=== PATIENT | female | born 1950 | race African-American/Black ===

== ENCOUNTER 2017-01-01 09:12 | Outpatient (CLI) | payer MEDICARE ==
--- NOTE | 2017-01-01 10:36 | MMO ---
BILATERAL SCREENING MAMMOGRAM: Date: 01/01/17 INDICATION: Screening evaluation. COMPARISON: Prior exam dated 02/24/04. FINDINGS: Interpretation of this exam was assisted with computer-aided detection. There are scattered fibroglandular elements bilaterally. There are vascular calcifications bilaterally. There is a stable partially calcified mass within the outer aspect of the left breast which may refl ect a degenerating fibroadenoma. There is a new oval equal density mass seen within the anterior aspect of the upper outer left breas t measuring 7.0 mm. There is motion artifact on the left breast MLO. IMPRESSION: BIRADS 0: Incomplete: Need Additional Imaging Evaluation and/or Prior Mammograms for Comparison There is a new mass within the left breast 2 o'clock position that requires further evaluation. Spot magnification compression views in addition to ultrasound likely necessary for additional evaluatio n. Recommend repeat of the left breast MLO due to motion artifact. The facility will notify patient of need for additional imaging services. POS: ERNESTINA
== END 2017-01-01 09:13 | disposition home or self-care (01) ==
LOC: MAMMO 09:12
PROVIDERS: ATTEND Family Medicine
DX: Z12.31 Encounter for screening mammogram for malignant neoplasm of breast (principal); E11.9 Type 2 diabetes mellitus without complications
CPT/HCPCS: 77067; G0202

== ENCOUNTER 2017-04-29 10:34 | Emergency (ER) | payer MEDICARE ==
[2017-04-29 11:45] LABS: INR-International Normal Ratio 1.9; PTT 34.4 SEC (22.9-36.1); Prothrombin Time 22.8 SEC (12.0-14.7)
[2017-04-29 11:56] LABS: Anion Gap 12 mmol/L (10-20); BUN (Urea Nitrogen) 14 mg/dL (9.8-20.1); Calc. Creatinine Clearance 0 mL/min (70-130); Calcium 9.8 mg/dL (7.8-10.44); Carbon Dioxide 24 mmol/L (23-31); Chloride 106 mmol/L (98-107); Estimated GFR-MDRD 67; Glucose 84 mg/dL (80-115); Potassium 3.6 mmol/L (3.5-5.1); Sodium 138 mmol/L (136-145)
--- NOTE | 2017-04-29 13:00 | ULT ---
DEEP VENOUS SONOGRAM LEFT LOWER EXTREMITY: HISTORY: Left leg pain and edema. FINDINGS: The left common femoral vein and greater saphenous junction are evaluated along with the femoral, prosper p femoral, popliteal, and posterior tibial vein. T here is good color and spectral Doppler flow, comp ression, and augmentation. IMPRESSION: No sonographic evidence of deep vein thrombosis within the left lower extremity. POS: GAIL
== END 2017-04-29 12:21 | disposition home or self-care (01) ==
LOC: ERS 10:34
DX: S86.912A Strain of unspecified muscle(s) and tendon(s) at lower leg level, left leg, initial encounter (principal); I48.91 Unspecified atrial fibrillation; E11.9 Type 2 diabetes mellitus without complications; E78.5 Hyperlipidemia, unspecified; I10 Essential (primary) hypertension; Z87.891 Personal history of nicotine dependence; Z79.899 Other long term (current) drug therapy; Z79.82 Long term (current) use of aspirin; Z79.84 Long term (current) use of oral hypoglycemic drugs; Z79.01 Long term (current) use of anticoagulants; X50.9XXA Other and unspecified overexertion or strenuous movements or postures, initial encounter
CPT/HCPCS: 36415; 80048; 85610; 85730

== ENCOUNTER 2017-08-29 12:09 | Emergency (ER) | payer MEDICARE ==
[2017-08-29] MEDS ORDERED: Lorazepam 2 MG/ML VIAL ONE (13:50)
[2017-08-29] MEDS ORDERED: Morphine 10 MG/ML VIAL ONE (13:50)
== END 2017-08-29 14:18 | disposition home or self-care (01) ==
LOC: ERS 12:09
DX: M79.7 Fibromyalgia (principal); E11.9 Type 2 diabetes mellitus without complications; E78.5 Hyperlipidemia, unspecified; I48.91 Unspecified atrial fibrillation; I10 Essential (primary) hypertension; M19.90 Unspecified osteoarthritis, unspecified site; Z87.891 Personal history of nicotine dependence; Z79.84 Long term (current) use of oral hypoglycemic drugs; Z79.899 Other long term (current) drug therapy; Z79.01 Long term (current) use of anticoagulants
CPT/HCPCS: 96372; J2060; J2270

== ENCOUNTER 2018-01-10 06:40 | Outpatient (CLI) | payer MEDICARE ==
--- NOTE | 2018-01-10 08:59 | ULT ---
ABDOMINAL ULTRASOUND: Date: 01/10/18 HISTORY: Generalized abdominal pain. FINDINGS: Real-time imaging of the upper abdomen demonstrates a normal appearing gallbladder. The common duct i s 5.0 mm. Technologist reports a negative ultrasound Rhoades's sign. Visualized liver parenchyma is no rmal. The spleen is normal in size, it measures 10.5 cm in length. Right and left kidneys are partially obscured, but they are normal in size and not obstructed. Pancreas is partially obscured. The abdominal aorta and IVC regions are unremarkable. IMPRESSION: Essentially unremarkable abdomen ultrasound. POS: T[facility]
== END 2018-01-10 06:41 | disposition home or self-care (01) ==
LOC: BICULT 06:40
PROVIDERS: ATTEND Internal Medicine Gastroenterology
DX: R10.9 Unspecified abdominal pain (principal)
CPT/HCPCS: 76700

== ENCOUNTER 2018-01-22 07:29 | Day surgery (SDC) | payer MEDICARE ==
[2018-01-21 12:54] VITALS: BMI 36.6
--- NOTE | 2018-01-22 07:21 | HP ---
DATE OF ADMISSION: 01/22/2018 HISTORY OF PRESENT ILLNESS: Ms. Jacque Pinto is a very pleasant 67-year-old -Malag[place] with abdominal pain off and on over the last 1 year. The pain is in the upper abdomen. The pain is all over the epigastric area. The pain is cramping in nature and at times sharp in nature. She has mild nausea with the pain. No vomiting. The patient has had abdominal sonogram. The sonogram shows no gallstones. With this abdominal pain, she also has history of intermittant rectal bleeding. The patient is coming in for EGD for abdominal pain and for colonoscopy because of hematochezia. ALLERGIES: SULFA and HYDROCODONE. SOCIAL HISTORY: She is a former smoker. No alcohol intake. MEDICAL ILLNESSES: 1. Hypertension. 2. Diabetes. 3. Hyperlipidemia. 4. Obesity. 5. Fibromyalgia. 6. Osteoarthritis. 7. ASD repair. 8. Cardiac ablation few years ago. 9. Sleep apnea. PHYSICAL EXAMINATION: GENERAL: Patient is obese, appears comfortable. VITAL SIGNS: Pulse is 70, blood pressure 130/80. HEENT: Conjunctivae clear. CARDIOVASCULAR: First and second heart sounds normal. LUNGS: Clear to auscultation. ABDOMEN: Soft to palpate. No organomegaly. Abdomen is tender over the epigastric area. There is no rebound or guarding. EXTREMITIES: Reveal no edema. ADMITTING DIAGNOSES: A 67-year-old -Malagasy with abdominal pain and hematochezia. PLAN: EGD and colonoscopy. MTDD
--- NOTE | 2018-01-22 12:43 | OP ---
DATE OF PROCEDURE: 01/22/2018 SURGEON: Skyler Angeles M.D. OPERATIVE PROCEDURE: Colonoscopy with polypectomy. . PREOPERATIVE DIAGNOSIS: Rectal bleeding. POSTOPERATIVE DIAGNOSES: 1. Sessile ascending colon polyp. 2. Sigmoid diverticular disease. 3. Hemorrhoids. 4. Retained stool throughout the colon. PROCEDURE IN DETAIL: The patient was placed on her left lateral position and was given sedation by A nesthesia Department. A rectal exam was done. The scope was advanced into the rectum. No lesions w ere felt on rectal exam. A Pentax video colonoscope was introduced into the rectum and advanced all the way into the cecum. The appendiceal orifice, ileocecal valve, cecum, no pathology seen. The asc ending colon showed a broad-based sessile polyp. This was removed with snare cautery with good hemos tasis. The hepatic flexure, transverse colon, splenic flexure, descending colon, no pathology seen. The sigmoid colon showed scattered diverticula. Rectum showed hemorrhoids.
[2018-01-22] MEDS ORDERED: PROPOFOL 200 MG/20 ML VIAL ONE (17:59)
[2018-01-22] MEDS ORDERED: Lidocaine 1% PF 5 ML VIAL ONE (17:59)
--- NOTE | 2018-01-23 00:41 | OP ---
DATE OF PROCEDURE: 01/22/2018 SURGEON: Nav Hidalgo M.D. PROCEDURE PERFORMED: Esophagogastroduodenoscopy, enteroscopy. PREOPERATIVE DIAGNOSIS: A 67-year-old black female with a previous gastric bypass surgery, comes with abdominal pain. The patient had abdominal sonogram, which was negative for gallstones. The patient underwent esophagogastroduodenoscopy. POSTOPERATIVE DIAGNOSES: 1. Esophagitis, distal esophagus. 2. Ulceration over anastomotic area. Otherwise, both afferent and efferent loop showed no pathology. PROCEDURE IN DETAIL: The patient was placed on her left lateral position and was given sedation by the Anesthesia Department. A Pentax video gastroscope under direct vision was passed down the oropharynx into the esophagus. The esophageal mucosa appears normal over the upper two-thirds. Over the distal esophagus, the patient found to have erythematous mucosa. The patient found to have small ulceration at the anastamotic area. Both afferent and efferent loop entered without difficulty and no pathology seen. The scope removed. DISCHARGE PLANNING: This is a 67-year-old -Spanish female who came in for colonoscopy and EGD. The EGD showed an ulcer at the anastomotic area and esophagitis. The prep was somewhat unsatisfactory; however, the exam was done all the way to cecum. She had a broad-based sessile polyp over the ascending colon. She also had a hemorrhoids and sigmoid diverticula. DISCHARGE RECOMMENDATIONS: 1. Start patient on omeprazole 40 once a day. 2. The patient advised to call me if she develops abdominal pain or hematochezia. 3. To come back to clinic in next week. [facility]
== END 2018-01-22 10:52 | disposition home or self-care (01) ==
LOC: SDC 07:29
PROVIDERS: ATTEND Internal Medicine Gastroenterology
PROC: 0DJ08ZZ Inspection of Upper Intestinal Tract, Via Natural or Artificial Opening Endoscopic (ICD-10-PCS; principal; 2018-01-22)
PROC: 0DBK8ZX Excision of Ascending Colon, Via Natural or Artificial Opening Endoscopic, Diagnostic (ICD-10-PCS; 2018-01-22)
DX: K57.31 Diverticulosis of large intestine without perforation or abscess with bleeding (principal); K64.9 Unspecified hemorrhoids; D12.2 Benign neoplasm of ascending colon; K20.9 Esophagitis, unspecified; K95.89 Other complications of other bariatric procedure; I10 Essential (primary) hypertension; E11.9 Type 2 diabetes mellitus without complications; E78.5 Hyperlipidemia, unspecified; M79.7 Fibromyalgia; M19.90 Unspecified osteoarthritis, unspecified site; G47.30 Sleep apnea, unspecified; K59.00 Constipation, unspecified; F41.9 Anxiety disorder, unspecified; F32.9 Major depressive disorder, single episode, unspecified; K21.9 Gastro-esophageal reflux disease without esophagitis; G43.909 Migraine, unspecified, not intractable, without status migrainosus; E78.00 Pure hypercholesterolemia, unspecified; E66.9 Obesity, unspecified; Z68.36 Body mass index [BMI] 36.0-36.9, adult; Z88.2 Allergy status to sulfonamides; Z88.5 Allergy status to narcotic agent; Z79.01 Long term (current) use of anticoagulants; Z79.84 Long term (current) use of oral hypoglycemic drugs; Z79.899 Other long term (current) drug therapy; Z98.84 Bariatric surgery status
CPT/HCPCS: 88305; J2001; J2704

== ENCOUNTER 2018-12-15 19:18 | Emergency (ER) | payer MEDICARE ==
[2018-12-15] MEDS ORDERED: Morphine 4 MG/ML VIAL ONE (19:50)
== END 2018-12-15 20:09 | disposition home or self-care (01) ==
LOC: ERS 19:18
DX: M79.7 Fibromyalgia (principal); I48.91 Unspecified atrial fibrillation; E78.5 Hyperlipidemia, unspecified; I10 Essential (primary) hypertension; E11.9 Type 2 diabetes mellitus without complications; M19.90 Unspecified osteoarthritis, unspecified site; Z87.891 Personal history of nicotine dependence; Z71.6 Tobacco abuse counseling; Z79.899 Other long term (current) drug therapy; Z79.01 Long term (current) use of anticoagulants; Z79.84 Long term (current) use of oral hypoglycemic drugs
CPT/HCPCS: 96372; 99406; J2270

== ENCOUNTER 2018-12-22 00:08 | Observation (INO) | payer MEDICARE ==
[2018-12-22] MEDS ORDERED: Aspirin Chewable 81 MG TAB ONE (00:28)
[2018-12-22] MEDS ORDERED: Nitroglycerin 2% Ointment 1 INCH/1 GM Packet ONE (00:28)
[2018-12-22 00:50] LABS: Hemoglobin 10.3 g/dL (12.0-16.0); Mean Corpuscular HGB CONC 32.5 g/dL (32.0-36.0); Mean Corpuscular Hemoglobin 27.6 pg (27.0-31.0); Mean Corpuscular Volume 85.2 fL (78.0-98.0); Mean Platelet Volume 7.8 fL (7.4-10.4); Platelet Count 254 thou/uL (130-400); RBC Distribution Width 14.1 % (11.5-14.5); Red Blood Cell (RBC) Count 3.73 mill/uL (4.20-5.40); White Blood Cell (WBC) Count 8.1 thou/uL (4.8-10.8)
[2018-12-22 00:55] LABS: ALT (SGPT) 11 U/L (8-55); AST (SGOT) 19 U/L (5-34); Alkaline Phosphatase 98 U/L (40-110); Anion Gap 13 mmol/L (10-20); BUN (Urea Nitrogen) 9 mg/dL (9.8-20.1); Bilirubin, Total 0.2 mg/dL (0.2-1.2); CK (CPK) 57 U/L (29-168); Calc. Creatinine Clearance 0 mL/min (70-130); Calcium 9.6 mg/dL (7.8-10.44); Carbon Dioxide 26 mmol/L (23-31); Chloride 104 mmol/L (98-107); Estimated GFR-MDRD 76; Globulin 3.5 g/dL (2.4-3.5); Glucose 90 mg/dL (80-115); Potassium 3.8 mmol/L (3.5-5.1); Protein, Total 7.5 g/dL (6.0-8.3); Sodium 139 mmol/L (136-145)
[2018-12-22 01:14] LABS: #Eosinphils 0.2 thou/uL (0.0-0.7); #Lymphocytes 2.1 thou/uL (1.20-3.40); #Monocytes 0.5 thou/uL (0.11-0.59); #Neutrophils 5.2 thou/uL (1.40-6.50); %Basophils 0.4 % (0.0-1.0); %Lymphocytes 26.5 % (21.0-51.0); %Monocytes 6.2 % (0.0-10.0); %Neutrophils 64.9 % (42.0-75.0); Anisocytosis SLIGHT = 6-15 cells (100X) (0-5/hpf); Elliptocytes SLIGHT = 2-5 cells (100X) (0-1/hpf); MDiff Complete? YES
[2018-12-22] MEDS ORDERED: hydrALAZINE 20 MG/ML VIAL ONE (01:33)
[2018-12-22 03:49] VITALS: BMI 34.8
[2018-12-22 05:43] LABS: Troponin I 0.018 ng/mL (< 0.028)
[2018-12-22] MEDS ORDERED: Diazepam 5 MG TAB PO PRN (06:04)
[2018-12-22] MEDS ORDERED: hydrALAZINE 20 MG/ML VIAL SLOW IVP PRN (06:11)
[2018-12-22] MEDS ORDERED: Dextrose 5% in Water 1,000 ML IV PRN (06:17)
[2018-12-22] MEDS ORDERED: Dextrose 50% Abboject 50 ML SYRINGE SLOW IVP PRN (06:17)
[2018-12-22] MEDS ORDERED: HumaLOG 300 UNITS/3 ML VIAL SC PRN (06:17)
[2018-12-22] MEDS: Nitroglycerin 2% Ointment 1 INCH/1 GM Packet TOP SCH ×3 (06:40→21:29)
[2018-12-22] MEDS: Acetaminophen/Codeine 30-300mg Tablet PO PRN ×4 (06:40→21:14)
[2018-12-22 07:19] LABS: INR-International Normal Ratio 2.6; Prothrombin Time 27.8 SEC (12.0-14.7)
[2018-12-22] MEDS ORDERED: Aspirin 325 MG TAB PO SCH (08:00)
[2018-12-22] MEDS ORDERED: Amlodipine 5 mg/Benazepril 20 mg CAP PO SCH (09:00)
[2018-12-22] MEDS: Carvedilol 6.25 MG TAB PO SCH ×2 (09:02→21:16)
[2018-12-22] MEDS: metFORMIN 500 MG TAB PO SCH (09:03)
[2018-12-22] MEDS: levETIRAcetam 500 MG TAB PO SCH ×2 (09:03→21:18)
--- NOTE | 2018-12-22 09:36 | RAD ---
CHEST ONE VIEW: INDICATIONS: History of chest pain. COMPARISON: Prior exam dated 11/29/2013. FINDINGS: There is stable moderate cardiomegaly. Midline sternotomy changes are stable. Pulmonary vasculature i s mildly prominent but stable. No consolidation, pleural effusion, or pneumothorax is evident. No acu te osseous abnormality is evident. IMPRESSION: 1. Stable cardiomegaly with mild pulmonary vascular congestion. 2. No focal consolidation, pleural effusion, or pneumothorax is evident. POS: BH
[2018-12-22 10:50] LABS: Troponin I 0.037 ng/mL (< 0.028)
[2018-12-22] MEDS: Labetalol HCl 100 MG/20 ML VIAL SLOW IVP PRN ×2 (11:01→16:12)
[2018-12-22 16:43] LABS: Troponin I 0.026 ng/mL (< 0.028)
[2018-12-22] MEDS: Warfarin Sodium 5 MG TAB PO SCH (17:40)
[2018-12-22] MEDS: Amlodipine 5 mg/Benazepril 20 mg CAP PO SCH (21:14)
[2018-12-22] MEDS: Atorvastatin Calcium 10 MG TAB PO SCH (21:16)
--- NOTE | 2018-12-22 23:25 | PRG ---
DATE OF SERVICE: 12/22/2018 CHIEF COMPLAINT: Chest pain. PRIMARY CARE PHYSICIAN: Romero Tompkins MD HISTORY OF PRESENT ILLNESS: The patient had substernal chest pain, additionally found to have elevated blood pressure, presented to the emergency department, systolics were near the 200s, diastolics over 100. The patient with shortness of breath and chest pain, was given nitroglycerin paste as well as hydralazine to help bring that down, which did improve the patient's symptoms, but she still has dizziness and chest pain even following that. Troponins serially were performed and did show a less than cutoff in the emergency department and arrival to floor. The patient is only on carvedilol on an outpatient basis. Has a history of atrial fibrillation that is status post ablation and history of PE, so she is chronically anticoagulated at baseline. The patient has not had a recent stress test or echocardiogram since her ablation several years ago. The patient denies any cough or GI symptoms, did just get treated for UTI, but has no further UTI symptoms. No flank pain. No dysuria. No hematuria. On review of past medical, social and surgical history includes status post gastric bypass surgery on heart as a child for patent foramen ovale versus ductus arteriosus, status post hysterectomy, cardiac ablation as above, prior seizure disorder currently controlled on Keppra, diabetes type 2, fibromyalgia on chronic pain medications, anxiety and depression. Review of vital signs on arrival to floor, temperature 97.7, pulse of 71, respiratory rate of 20, oxygen saturation 99% on room air, and blood pressure 166/102. LABORATORY WORK: White blood cell count of 8.1, hemoglobin of 10.3, platelet count of 254. INR of 2.6. Sodium 139, potassium 3.8, creatinine of 0.9, glucose of 90, AST of 19, ALT of 11, albumin of 4.0. Troponins serially 0.025, 0.018, 0.037, 0.026. Glucose of 88. Chest x-ray without acute cardiopulmonary events or effusions. PHYSICAL EXAMINATION: GENERAL: The patient is alert and oriented, in minor distress regarding breathing and chest pain. HEENT: Head is normocephalic and atraumatic. Otherwise, extraocular movements are intact. Oral mucosa is moist. NECK: Supple. HEART: Regular rate and rhythm at the time of exam. No murmurs auscultated. LUNGS: Clear to auscultation bilaterally. No rubs or wheezes. ABDOMEN: Soft, nontender. Positive bowel sounds throughout. LOWER EXTREMITIES: Without cyanosis or edema. No CVA tenderness on exam. NEUROLOGIC: The patient is alert and oriented x3. No focal deficits. Speech is normal. ASSESSMENT AND PLAN: Hypertensive emergency, elevated troponin, chest pain, rule out myocardial infarction, history of atrial fibrillation and pulmonary embolism on anticoagulation, diabetes type 2, not on insulin, fibromyalgia, chronic pain, anxiety. Following serial troponins, feel that the one time intermediate which has since gone down secondary to patient's hypertensive emergency rather than acute myocardial infarction. However, I do feel the patient needs to be further ruled out. Echocardiogram has been done, but has not been read. We will attempt to further get the patient's blood pressure under control prior to stress test tomorrow morning. If that is okay, the patient will likely be discharged if blood pressures are controlled on top of patient's regular carvedilol 12.5 mg b.i.d., added amlodipine-benazepril 5 mg/20. This was titrated to twice a day this morning and this evening, which is a new medication for patient. Did note that the patient has quite a number of serotonin agents with home medications including baclofen 10 mg t.i.d. p.r.n., codeine with Tylenol 300 mg/30 mg q.4 hours for pain, citalopram 40 mg daily, diazepam 5 mg q.8 hours p.r.n. anxiety, gabapentin 300 mg t.i.d., Keppra 500 mg p.o. b.i.d., metformin 500 mg daily, nortriptyline 100 mg at bedtime, pantoprazole for GERD 40 mg daily, simvastatin for hyperlipidemia 40 mg at bedtime, Coumadin 5 mg daily. We will be holding excess serotonin agents only. Continue p.r.n. codeine and diazepam. We will keep the patient's Keppra but will eliminate SSRI, gabapentin, and any additional agents. The patient has p.r.n. labetalol and hydralazine for breakthrough. Did have nitroglycerin paste on for approximately 12 hours continuing Coumadin. Followup serial INRs while inpatient. Sliding scale insulin with metformin. Given stable renal function, we will to recheck renal function in a.m. Continue patient's aspirin started in the emergency department 325 daily. We will spot check thyroid status in morning. Job ID: [id number]
[2018-12-23 04:22] LABS: INR-International Normal Ratio 2.3; Prothrombin Time 25.3 SEC (12.0-14.7)
[2018-12-23 04:36] LABS: ALT (SGPT) 9 U/L (8-55); AST (SGOT) 16 U/L (5-34); Alkaline Phosphatase 98 U/L (40-110); Anion Gap 13 mmol/L (10-20); BUN (Urea Nitrogen) 10 mg/dL (9.8-20.1); Bilirubin, Total 0.2 mg/dL (0.2-1.2); Calc. Creatinine Clearance 102 mL/min (70-130); Calcium 9.9 mg/dL (7.8-10.44); Carbon Dioxide 25 mmol/L (23-31); Chloride 101 mmol/L (98-107); Estimated GFR-MDRD 88; Globulin 3.6 g/dL (2.4-3.5); Glucose 87 mg/dL (80-115); Potassium 3.7 mmol/L (3.5-5.1); Protein, Total 7.6 g/dL (6.0-8.3); Sodium 135 mmol/L (136-145)
[2018-12-23 04:55] LABS: Thyroid Stimulating Hormone 1.4379 uIU/mL (0.35-4.94)
[2018-12-23] MEDS: metFORMIN 500 MG TAB PO SCH (08:41)
[2018-12-23] MEDS: levETIRAcetam 500 MG TAB PO SCH ×2 (08:53→20:51)
[2018-12-23] MEDS: Aspirin 325 mg Enteric Coated Tablet PO SCH (08:53)
[2018-12-23] MEDS: Furosemide 40 MG TAB PO SCH ×2 (08:54→16:44)
[2018-12-23] MEDS: Carvedilol 6.25 MG TAB PO SCH ×2 (08:54→20:50)
[2018-12-23] MEDS: Nitroglycerin 2% Ointment 1 INCH/1 GM Packet TOP SCH ×2 (08:55→20:52)
[2018-12-23] MEDS: Amlodipine 5 mg/Benazepril 20 mg CAP PO SCH ×2 (08:55→20:50)
--- NOTE | 2018-12-23 11:59 | PRG ---
DATE OF SERVICE: 12/23/2018 SUBJECTIVE: The patient was admitted yesterday morning with chest pain. The chest pain began Sunday morning when she awoke. It persisted throughout the day. Finally, the chest pain became worse. It was a pressure-like sensation, nonradiating with some shortness of breath. She was evaluated in the emergency room where her troponin levels were noted to be 0.025, 0.018 and 0.037. The patient still has a mild chest dullness. Her blood pressure was significantly elevated to 197/116. She does have a history of cardiac cath in 2008, which showed mild coronary artery disease at that time. PAST HISTORY: Also significant for history of PE in 2011, on lifetime anticoagulation with Coumadin. OBJECTIVE: VITAL SIGNS: Temperature 98.2, pulse 63, blood pressure 169/88, respirations 16, pulse ox 96. GENERAL: The patient with mild chest dullness, otherwise in no acute distress. HEART: Regular rate and rhythm. LUNGS: Clear. ABDOMEN: Soft. EXTREMITIES: With no edema. ASSESSMENT: 1. Chest pain, rule out myocardial infarction. 2. Mild coronary artery disease on heart catheterization in 2008. 3. Morbid obesity. 4. Obstructive sleep apnea. 5. Diabetes, hypertension, hyperlipidemia. 6. History of pulmonary embolism in 2011. INR 2.3. 7. Depression. 8. Fibromyalgia. 9. History of seizures. 10. Chronic anemia. 11. History of cardiac ablation with a history of atrial fibrillation many years ago. 12. 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 PLAN: 1. Hold metformin. 2. Hold Cardiolite stress test. 3. Consult Dr. Smith. May need a cardiac catheterization. The patient has multiple risk factors including morbid obesity, diabetes, hypertension, hyperlipidemia, obstructive sleep apnea, etc. 4. The patient yet to receive morning blood pressure medications. However, blood pressure are significantly improved since admission. 5. The hospitalist program will take over the patient's care in this evening. Job ID: [id number]
[2018-12-23] MEDS: Acetaminophen/Codeine 30-300mg Tablet PO PRN (12:28)
[2018-12-23] MEDS: Warfarin Sodium 5 MG TAB PO SCH (16:44)
[2018-12-23] MEDS: Atorvastatin Calcium 10 MG TAB PO SCH (20:50)
[2018-12-23] MEDS: hydrALAZINE 25 MG TAB PO SCH (20:51)
--- NOTE | 2018-12-23 23:22 | CON ---
DATE OF CONSULTATION: PRIMARY CARE DOCTOR: Romero Tompkins MD PRIMARY PRODUCT DEVELOPMENT DIRECTOR: Andreia Fair MD PRIMARY STILL WORKER HELPER: Skyler Angeles MD REASON FOR CARDIOLOGY CONSULT: Chest pain. HISTORY OF PRESENT ILLNESS: Ms. Pinto is a 68-year-old female with a significant history of atrial fibrillation with ablation in 2009, hypertension, recurrent UTI, type 2 diabetes, seizure, and fibromyalgia. The patient was doing relatively well until December 22. At this time, she started having pain to the right mediastinal border, which increased discomfort with palpitation and movement or taking deep breath. She was thinking that the pain is coming from history of fibromyalgia. However, the pain is getting worse twice the night, so the patient decided to present to the emergency department for further evaluation and treatment. The patient was found to have blood pressure of 200s/100s in the ER. The patient's blood pressure has been 150 to 160 on the systolic side during this admission. Her blood pressure at home has been 120s to 130s. She also feels nauseated for a few minutes at the ER; however, she denied any other cardiac complaints such as shortness of breath, dizziness, lightheadedness, or any other cardiac complaints. She had a history of recurrent UTI. She finished her antibiotic last Sunday. She denies any UTI like symptoms at this moment. The patient had echocardiogram done on December 22 with EF 60% to 65%, grade 2 diastolic dysfunction, moderately dilated left atrium, moderately enlarged right atrium size, mild mitral valve regurgitation, aortic valve sclerosis, moderate tricuspid regurgitation, and elevated right ventricular systolic pressure at 43 mmHg and dilated aortic root at 4.2. The patient had a history of atrial fibrillation ablation in 2009. EKG at this moment showing sinus rhythm. She is going to finish stress test tomorrow. At this moment, the patient has continued having the pain on the right mediastinal border side with palpitation; however, the patient states that the symptoms are getting improved at this moment. PAST MEDICAL HISTORY: Atrial fibrillation, history of PE, she is on Coumadin at this moment. UTI, hypertension, diabetes type 2, seizure, fibromyalgia, anxiety and depression. PAST SURGICAL HISTORY: Atrial fibrillation ablation in 2009, total hysterectomy, weight loss surgery. FAMILY HISTORY: The patient's father had a history of myocardial infarction x8, he passed of myocardial infarction at the age of 75 to 76. The patient's mother has a history of pacemaker placement secondary to bradycardia, and hypertension, hyperlipidemia, and murmur. The patient's aunts in the maternal side have a history of diabetes. SOCIAL HISTORY: The patient is a . The patient lives with her mother. She has 3 children, who live well. She is ex-smoker, quit in 1979. She denies EtOH or illicit drug abuse. She drinks about 40 ounces of Coke every day and water 5 to 6 bottles a day. She does not exercise. ALLERGIES: SHE IS ALLERGIC TO HYDROCODONE AND SULFA. MEDICATIONS: 1. Celexa 20 mg once a day. 2. Simvastatin 20 mg once a day. 3. Metformin 500 mg once a day. 4. Coumadin 5 mg once a day, which is managed by Dr. Tompkins. 5. Carvedilol 12.5 mg twice a day. 6. Nortriptyline 500 mg once a day. 7. Gabapentin 300 mg 3 times a day. 8. Keppra 500 mg twice a day. 9. Ferrous sulfate 325 mg once a day. 10. Diazepam 5 mg every 8 hours as needed. 11. Protonix 40 mg once a day. 12. Tylenol with codeine, Tylenol 3 tablets every 4 hours as needed. 13. Baclofen 10 mg 3 times a day as needed. REVIEW OF SYSTEMS: A 12-point review of systems negative unless otherwise mentioned in HPI. The patient has a history of massive rectal bleed in August 2018, status post colonoscopy by Dr. Angeles. The patient was told everything is clear at this moment. PHYSICAL EXAMINATION: VITAL SIGNS: Blood pressure 155/98, temperature 98.2, pulse is 78 with sinus rhythm, respiratory rate 18, O2 saturation 98% on room air. GENERAL: The patient is alert and oriented x4, not in any acute distress. HEENT: Normocephalic, atraumatic. Eyes, extraocular muscle movement intact. ENT and mouth, oral and nasal mucosa moist without lesion. NECK: Supple. Normal range of motion. No JVD. RESPIRATORY: Clear to auscultate bilaterally, but diminished at the bases. No wheezing, rales, or rhonchi noted. CARDIOVASCULAR: Regular rate and rhythm. Normal S1, S2. There is no S3 or S4. No significant murmur, hives, or thrills noted, 2+ pulses in bilateral upper and lower extremities. No edema in lower extremities. ABDOMEN: Soft, nontender. No masses palpated. Bowel sounds are present. EXTREMITIES: Carotid pulses are present without bruit or thrill. MUSCULOSKELETAL: The patient able to move all extremities and denied claudication. NEUROLOGIC: The patient is alert and oriented x4. Nonfocal. SKIN: Warm and dry. No lesion, rash, or erythema noted. LABORATORY DATA: WBC 8.1, hemoglobin 10.3, which was 9.8 on December 03, 2018, and hematocrit 31.7. INR 2.3. Sodium 135, potassium 3.7, BUN 10, creatinine 0.79, glucose 87, AST 16, and ALT 9. Troponin 0.025, 0.018, 0.037 and 0.026 and free T3 is 2.79 and TSH is 1.4379. DIAGNOSTIC DATA: Chest x-ray shows stable cardiomegaly with mild pulmonary vascular congestion. ASSESSMENT AND PLAN: 1. Chest pain. Her symptom seems to be not from cardiac etiology; however, she has a high risk of myocardial infarction, which she has a strong history of family history, diabetes, hypertension, obesity and sleep apnea. The patient has first part of a stress test today and she is going to have second part of stress test tomorrow. If everything is negative and the patient is asymptomatic, at that time, the patient is going to be discharged. The patient's echocardiogram shows normal. 2. Mild coronary artery disease on heart catheterization in 2008. 3. Hypertension. The patient's blood pressure is still elevated. We would like to add hydralazine 25 mg twice a day, it is going to be started from [facility]. 4. Diabetes type 2, which is managed by primary care doctor. 5. History of pulmonary embolism in 2011. She is on Coumadin. INR is 2.3. 6. Hyperlipidemia. The patient is on statin at this moment. 7. History of seizure. She is on the Keppra, which is managed by primary care doctor. 8. Obstructive sleep apnea. Weight management is discussed with the patient. 9. Morbid obesity. Again, weight management is discussed with the patient. 10. Atrial fibrillation with status post atrial fibrillation ablation in 2009. The patient's EKG have showed sinus rhythm. She is on Coumadin and she is on carvedilol at this moment. I would like to continue to monitor on the telemetry. 11. History of rectal bleed, is stable right now. The patient's H and H are stable. She is on Protonix and ferrous sulfate. Thank you very much for Cardiology Service to participate in the care of this patient. We will follow along the patient's care team and make further recommendations as appropriate. Job ID: [id number]
--- NOTE | 2018-12-24 02:46 | CON ---
DATE OF CONSULTATION: 12/23/2018 INDICATION FOR CONSULTATION: This is a 68-year-old female who has history of mild coronary disease. 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 There was no stenosis noted in the left anterior descending or the left circumflex. However, there were aneurysmal vessels. At that time, she had an ejection fraction of 35% to 40%, but over time per echocardiograms in 2011, ejection fraction was 54% to 60% percent, and now echocardiogram done on this admission shows ejection fraction of 60% to 65% however, she does have diastolic dysfunction. She also had left and right atrial dilatation as well as moderate tricuspid valve regurgitation and elevated right ventricular systolic pressure of 43 mmHg compatible with mild pulmonary hypertension. She did undergo congenital heart disease surgery when 21 years old, either an ASD or VSD. I am uncertain as to which, but she says that this was diagnosed by Dr. Smith and this was repaired in [place] at age 21. She has also had PEs and I believe this was in 2011. Since that time, she has been on Coumadin. She also in September of this year had a polyp removed due to a GI bleed and this has remained stable since that time. She has not been feeling well a week before last. She had a urinary tract infection, which was treated with Cipro and this time she has had some chest discomfort which she describes as being tightness or pressure for the last 2-3 days, which is worse with movement. As long as she is still, she does not have any pain, but when she tries to turn over, she will get pain. She also has a history of fibromyalgia. However associated with the pain, she did have some shortness of breath that her EKGs show some nonspecific changes. However, she did have one 11-beat run of nonsustained ventricular tachycardia, which is certainly concerning, but otherwise her EKG showed an incomplete right bundle-branch block with a normal sinus rhythm and some degree of left ventricular hypertrophy. Her cardiac enzymes are indeterminate. Her troponin I initially was 0.025 and decreased down to 0.018 and the next one was 0.037 also indeterminate. She has undergone the stress portion of the nuclear study today and will undergo stress portion tomorrow. If there is any abnormalities noted on the stress test, I would suggest she undergo a repeat cardiac catheterization to evaluate her coronary artery status. PAST MEDICAL HISTORY: Otherwise, she does have some history of diabetes, hypercholesterolemia and hypertension, which are risk factors for her developing further coronary artery disease. She did also undergo an ablation for either atrial fibrillation or flutter in 2009. She has a history of chronic anemia and actually has also history of seizure disorders for which she takes medication. PAST SURGICAL HISTORY: Please refer to the notes dictated by the nurse practitioner, Bharat Valerio. SOCIAL HISTORY: Please refer to the notes dictated by the nurse practitioner, Bharat Valerio. FAMILY HISTORY: Please refer to the notes dictated by the nurse practitioner, Bharat Valerio. REVIEW OF SYSTEMS: Please refer to the notes dictated by the nurse practitioner, Bharat Valerio. ALLERGIES: PLEASE REFER TO THE NOTES DICTATED BY THE NURSE PRACTITIONER, BHARAT VALERIO. MEDICATIONS: Please refer to the notes dictated by the nurse practitioner, Bharat Valerio. PHYSICAL EXAMINATION: GENERAL: Reveals a very pleasant, well-developed, well-nourished female, who is in no acute distress. She is alert and oriented. VITAL SIGNS: Blood pressure is 132/93. She is afebrile. Heart rate is in the 80s and shows a sinus rhythm, respiratory rate is 18. HEENT: Shows the head to be normocephalic and atraumatic. NECK: Carotid pulses are present. There were no bruits. There is no JVD. The thyroid is not enlarged. HEENT: Oral mucosa was pink and moist. CHEST: Clear to auscultation. There were no rales, rhonchi, or wheezing. CARDIOVASCULAR: Reveals a regular rate and rhythm with normal S1, S2. I cannot hear an S3 nor an S4 nor could hear any significant murmurs, heaves, thrills, bruits or rubs. ABDOMEN: Shows some mild obesity with positive bowel sounds. No organomegaly or masses are noted. EXTREMITIES: Femoral pulses are present. Extremities showed no clubbing, cyanosis, or edema. Pedal pulses are present. NEUROLOGIC: The patient appears to be fully intact. She did have some chest discomfort on movement in the upper chest area, but otherwise no significant abnormalities were noted from her physical examination. SKIN: Warm and dry. IMPRESSION: 1. 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 We will obtain the stress test to rule out evidence of ischemia. If there is ischemia, the patient will need to undergo repeat cardiac catheterization. 2. Nonsustained ventricular tachycardia, which certainly could be an indicator of progression of coronary artery disease, and we will await the stress test. She may eventually need to undergo a cardiac catheterization regardless of the results of the stress test should she have further arrhythmias. 3. History of fibromyalgia. This appears to be relatively stable, but her discomfort could be due to her fibromyalgia. 4. Diabetes. This will be dealt with by the primary care service. 5. History of seizure disorder. Also will be dealt by the primary care service. At this time, we will continue to follow the patient with you. Job ID: [id number]
[2018-12-24 03:25] LABS: Hemoglobin 12.4 g/dL (12.0-16.0); Platelet Count 290 thou/uL (130-400)
--- NOTE | 2018-12-24 11:15 | NM ---
EXAM: NM Cardiac Stress W EF WF PROVIDED CLINICAL HISTORY: Chest pain COMPARISON: None FINDINGS: This examination was performed as a pharmacologic stress test after the administration of adenosine i ntravenously. Rotating images demonstrate uptake of radiotracer seen at the level of the right wrist and upper righ t arm likely to side of injection. No reversible defects are seen between the stress and resting acquisitions. Quantitative analysis also shows no significant reversible defect. Gated images demonst rate hypokinesis/dyskinesis involving the septum and inferior left ventricular wall. Normal wall thickening is present. The calculated left ventricular ejection fraction is low normal at 50%. IMPRESSION: 1. Normal myocardial perfusion study without evidence of a reversible defect seen to suggest ischemia . 2. Hypokinesis/dyskinesis involving the septum and inferior left ventricular wall. 3. LVEF of 50%.
[2018-12-24] MEDS ORDERED: ADENOSINE 60 MG/20 ML VIAL ONE (11:20)
[2018-12-24 12:06] VITALS: BP 142/90; TEMP 97.6
[2018-12-24] MEDS: Carvedilol 6.25 MG TAB PO SCH (12:06)
[2018-12-24] MEDS: Aspirin 325 mg Enteric Coated Tablet PO SCH (12:06)
[2018-12-24] MEDS: Amlodipine 5 mg/Benazepril 20 mg CAP PO SCH (12:06)
[2018-12-24] MEDS: hydrALAZINE 25 MG TAB PO SCH (12:06)
[2018-12-24] MEDS: Furosemide 40 MG TAB PO SCH ×2 (12:07→15:02)
[2018-12-24] MEDS: levETIRAcetam 500 MG TAB PO SCH (12:07)
[2018-12-24] MEDS: Nitroglycerin 2% Ointment 1 INCH/1 GM Packet TOP SCH (12:07)
--- NOTE | 2018-12-24 13:29 | PDOC.CPN ---
- Subjective Date: 12/24/18 Time: 13:33 Interval history: The pt seen and examined. No overnight events. No cardiac complaints. - Objective Allergies/Adverse Reactions: Allergies Allergy/AdvReac Type Severity Reaction Status Date / Time hydrocodone Allergy Verified 12/22/18 03:44 Sulfa (Sulfonamide Allergy Verified 12/22/18 03:44 Antibiotics) Visit Medications: Current Medications Acetaminophen/Codeine Phosphate (Tylenol #3) 1 tab PO Q4H PRN PRN Reason: Pain Last Admin: 12/23/18 12:28 Dose: 1 tab Amlodipine/Benazepril HCl (Lotrel 08/12) 1 cap PO BID [facility] Last Admin: 12/24/18 12:06 Dose: 1 cap Aspirin (Ecotrin) 325 mg PO DAILY [facility] Last Admin: 12/24/18 12:06 Dose: 325 mg Atorvastatin Calcium (Lipitor) 10 mg PO HS [facility] Last Admin: 12/23/18 20:50 Dose: 10 mg Carvedilol (Coreg) 12.5 mg PO BID [facility] Last Admin: 12/24/18 12:06 Dose: 12.5 mg Dextrose/Water (Dextrose 50%) 25 gm SLOW IVP PRN PRN PRN Reason: Hypoglycemia Furosemide (Lasix) 40 mg PO 0900,1400 [facility] Last Admin: 12/24/18 12:07 Dose: 40 mg Glucagon (Glucagon) 1 mg IM PRN PRN PRN Reason: Hypoglycemia Hydralazine HCl (Apresoline) 10 mg SLOW IVP Q4H PRN PRN Reason: SBP Greater Than 180 Last Admin: 12/22/18 07:42 Dose: 10 mg Hydralazine HCl (Apresoline) 25 mg PO BID [facility] Last Admin: 12/24/18 12:06 Dose: 25 mg Dextrose/Water (D5w) 1,000 mls @ 0 mls/hr IV .Q0M PRN PRN Reason: Hypoglycemia Insulin Human Lispro (Humalog) 0 units SC .MODERATE SLIDING SC PRN PRN Reason: Moderate Correctional Scale Labetalol HCl (Normodyne) 20 mg SLOW IVP Q4H PRN PRN Reason: SBP Greater Than 180 Last Admin: 12/22/18 16:12 Dose: 20 mg Levetiracetam (Keppra) 500 mg PO BID [facility] Last Admin: 10/01/19 12:07 Dose: 500 mg Nitroglycerin (Nitro-Bid 2% Ointment) 1 inch TOP BID [facility] Last Admin: 12/24/18 12:07 Dose: Not Given Pantoprazole Sodium (Protonix) 40 mg PO DAILY [facility] Last Admin: 12/24/18 12:07 Dose: 40 mg Warfarin Sodium (Coumadin) 5 mg PO 1700 [facility] Last Admin: 12/23/18 16:44 Dose: 5 mg Vital Signs & Weight: Vital Signs Temp Pulse Resp BP Pulse Ox 12/24/18 11:15 97.6 F 81 16 142/90 H 98 12/24/18 07:26 98.4 F 83 16 154/102 H 98 12/24/18 04:10 98 F 78 18 161/100 H 96 Weight 202 lb 14.4 oz - Physical Exam General: alert & oriented x3 Neck: supple neck Cardiac: regular rate and rhythm, bradycardia Lungs: clear to auscultation Neuro: cranial nerve 2-12 intact Skin: clear Musculoskeletal: normal range of motion - Labs Result Diagrams: 12/24/18 03:08 12/23/18 03:41 Troponin/CKMB Troponin I 0.026 ng/mL (< 0.028) 12/22/18 16:03 - Telemetry Sinus rhythms and dysrhythmias: sinus rhythm - Assessment/Plan Assessment/Plan: 1. CP - Stress test showed normal. Asymptomatic 2. CAD with s/p LHC in 2008 with 20% stenosis in dist RCA and 20% in PDA - stable 3. hx of Afib RFA in 2009 - in SR; 4. HTN - stable 5. HLD - On statin 6. Seizure - stabe 7. MIRIAM 8. Hx of PE - on Coumadin 9. RBBB - new finding at this admission; stress test normal MAR reviewed * Echo on 12/22/2018 with EF 60-65%, grade II dd, mod dilated LA, mod ERA, mild MR, mod TR, RVSP 43mmHg, and dilated aortic root 4.2cm * From Cardiac standpoint, the pt is stable to d/c home. The pt will f/u with Dr Fair' office within 2 wks and possible LHC if she cont having cardiac related symptoms.
--- NOTE | 2018-12-24 15:35 | DIS ---
DATE OF ADMISSION: 12/22/2018 DATE OF DISCHARGE: 12/24/2018 DISCHARGE DISPOSITION: Home. FOLLOWUP: Follow up with Dr. Romero Tompkins in 1 week. Follow up with Dr. David Smith in 2 weeks. ALLERGIES: THE PATIENT IS ALLERGIC TO SULFA AND HYDROCODONE. DISCHARGE MEDICATIONS: Same as admission medication. The patient was seen and examined on the day of discharge. Denies any new complaints. No chest pain, shortness of breath, palpitations reported. INPATIENT MATCHER: Cardiology, Dr. Fair. DIAGNOSTIC TESTS: Echocardiogram showed left ventricular ejection fraction 60% to 65% with grade 2 of 3 diastolic dysfunction, mild mitral regurgitation and moderate tricuspid regurgitation. Aortic root was dilated at 4.2 cm. Cardiolite stress test was negative for reversible defect. Ejection fraction was 50%. There was some hypokinesis/dyskinesis involving the septum and inferior left ventricular wall. BRIEF HOSPITAL COURSE: The patient is a 68-year-old female with hypertension, hyperlipidemia, history of pulmonary embolism, on anticoagulation, presented to the hospital on November. For further details please refer to the history and physical by Dr. Romero Tompkins for further details. Please note that the hospitalist physician assumed the care of this patient today. The patient was admitted to the hospital with a diagnosis of chest discomfort, rule out acute coronary syndrome. The patient was evaluated by Cardiology. Cardiology recommended an echocardiogram and stress test, which were done as discussed above. Please note that the patient has a history of cardiac catheterization in 2008. The patient is chest pain free at this time. Stress test did not show any reversible ischemia. The patient has been cleared by Cardiology for discharge. FINAL DIAGNOSES: 1. Chest discomfort, acute coronary syndrome ruled out. 2. Indeterminate troponin. Maximum troponin this admission was 0.037, probably secondary to demand ischemia due to elevated blood pressure/type 2 myocardial infarction. 3. Hypertension with hypertensive urgency. Her blood pressure in the emergency room was 198/115. 4. History of pulmonary embolism, on anticoagulation. 5. Obstructive sleep apnea. 6. Seizure disorder. 7. Hyperlipidemia. 8. History of atrial fibrillation, status post radiofrequency ablation in 2009. The patient is currently in sinus rhythm. 9. New onset right bundle-branch block found this admission. 10. Dilatation of the aortic root at 4.2 cm. 11. Chronic diastolic heart failure. 12. Obesity with a body mass index of 34.8. 13. Hyponatremia. Sodium was 135. 14. Diabetes mellitus type 2. 15. Gastroesophageal reflux disease. 16. Anxiety. PLAN: Plan of care was discussed with the patient in detail. She stated understanding. Job ID: [id number]
--- NOTE | 2018-12-26 14:14 | STRESS ---
Acquisition Time: 2018-12-24 09:22:44 Total Exercise Time: 00:04:00 Test Indications: CHEST PAIN Medications: Protocol: ADENOSINE Max HR: 090 BPM 58% of Pred: 154 BPM Max BP: 146/080 mmHG Max Work Load: 1.0 METS THE PATIENT WAS INJECTED WITH ADENOSINE. SHE DID NOT DEVELOP CHEST PAIN. THERE WAS NO SIGNIFICANT ST DEPRESSION. AWAIT NUCLEAR IMAGES FOR DEFINITIVE DIAGNOSIS. Confirmed by CHINO TEMPLE ([id number]), general expeditor JAMIR MUSTAFA ([id number]) on 12/26/2018 2:14:17 PM Referred By: MD Kevin HENSON Confirmed By:CHINO TEMPLE
--- NOTE | 2018-12-28 11:03 | EKG ---
Test Reason : Blood Pressure : / mmHG Vent. Rate : 067 BPM Atrial Rate : 067 BPM P-R Int : 128 ms QRS Dur : 114 ms QT Int : 396 ms P-R-T Axes : 011 022 163 degrees QTc Int : 418 ms Normal sinus rhythm Incomplete right bundle branch block Left ventricular hypertrophy with repolarization abnormality Left ventricular hypertrophy Lateral ischemia Abnormal ECG Confirmed by MARNI MARSH, ARIADNE Reyes ([id number]), general expeditor FRANCOIS MURILLO ([id number]) on 12/28/2018 11:02:40 AM Referred By: Confirmed By:ARIADNE GRIDER MD
== END 2018-12-24 15:05 | disposition home or self-care (01) ==
LOC: ERS 00:08 → 2SE 01:00 → 2SW 22:26
PROVIDERS: ADMIT Family Medicine; ATTEND Family Medicine
DX: R07.89 Other chest pain (principal); I16.0 Hypertensive urgency; I11.0 Hypertensive heart disease with heart failure; I50.32 Chronic diastolic (congestive) heart failure; E11.9 Type 2 diabetes mellitus without complications; I26.99 Other pulmonary embolism without acute cor pulmonale; G47.33 Obstructive sleep apnea (adult) (pediatric); G40.909 Epilepsy, unspecified, not intractable, without status epilepticus; E78.5 Hyperlipidemia, unspecified; I45.10 Unspecified right bundle-branch block; E66.01 Morbid (severe) obesity due to excess calories; E87.1 Hypo-osmolality and hyponatremia; I25.10 Atherosclerotic heart disease of native coronary artery without angina pectoris; F41.8 Other specified anxiety disorders; F32.9 Major depressive disorder, single episode, unspecified; K21.9 Gastro-esophageal reflux disease without esophagitis; Z68.34 Body mass index [BMI] 34.0-34.9, adult; Z79.01 Long term (current) use of anticoagulants; Z79.4 Long term (current) use of insulin; Z79.82 Long term (current) use of aspirin; Z79.899 Other long term (current) drug therapy; Z88.2 Allergy status to sulfonamides; Z88.5 Allergy status to narcotic agent; Z87.891 Personal history of nicotine dependence
CPT/HCPCS: 71045; 78452; 80053 ×2; 82550; 82962 ×3; 84443; 84481; 84484 ×2; 85014; 85018; 85025; 85049; 85610 ×2; 93005; 93017; 93306; 96374; 96375; 96376 ×2; 99285; A9500; G0378 ×4; 36415; 36416; J0153; J0360

== ENCOUNTER 2018-12-25 12:13 | Inpatient (IN) | payer MEDICARE ==
[2018-12-25] MEDS ORDERED: Aspirin Chewable 81 MG TAB ONE (12:59)
[2018-12-25 13:25] LABS: #Eosinphils 0.1 thou/uL (0.0-0.7); #Lymphocytes 2.4 thou/uL (1.20-3.40); #Monocytes 0.6 thou/uL (0.11-0.59); #Neutrophils 6.5 thou/uL (1.40-6.50); %Basophils 0.2 % (0.0-1.0); %Eosinophils 0.7 % (0.0-10.0); %Lymphocytes 24.8 % (21.0-51.0); %Monocytes 6.1 % (0.0-10.0); %Neutrophils 68.2 % (42.0-75.0); Mean Corpuscular HGB CONC 32.6 g/dL (32.0-36.0); Mean Corpuscular Hemoglobin 27.3 pg (27.0-31.0); Mean Platelet Volume 7.9 fL (7.4-10.4); Platelet Count 296 thou/uL (130-400); RBC Distribution Width 14.3 % (11.5-14.5); Red Blood Cell (RBC) Count 4.39 mill/uL (4.20-5.40); White Blood Cell (WBC) Count 9.5 thou/uL (4.8-10.8)
--- NOTE | 2018-12-25 13:33 | RAD ---
2 VIEW CHEST: Date: 12/25/18 INDICATION: Shortness of breath. COMPARISON: 12/22/18. FINDINGS: Cardiomegaly again noted with postop sternotomy change. No evidence of significant vascular congestio n or edema. No focal infiltrate or significant effusion. IMPRESSION: Cardiomegaly. No acute lung process. POS: OFF
[2018-12-25 13:39] LABS: ALT (SGPT) 10 U/L (8-55); AST (SGOT) 19 U/L (5-34); Albumin 4.5 g/dL (3.4-4.8); Alkaline Phosphatase 110 U/L (40-110); Anion Gap 20 mmol/L (10-20); BUN (Urea Nitrogen) 30 mg/dL (9.8-20.1); Bilirubin, Total 0.4 mg/dL (0.2-1.2); CK (CPK) 106 U/L (29-168); Calc. Creatinine Clearance 0 mL/min (70-130); Calcium 9.8 mg/dL (7.8-10.44); Carbon Dioxide 24 mmol/L (23-31); Chloride 97 mmol/L (98-107); Estimated GFR-MDRD 25; Globulin 3.6 g/dL (2.4-3.5); Glucose 108 mg/dL (80-115); Potassium 3.9 mmol/L (3.5-5.1); Protein, Total 8.1 g/dL (6.0-8.3); Sodium 137 mmol/L (136-145)
[2018-12-25] MEDS ORDERED: Ondansetron ODT 4 MG TAB SL PRN (17:30)
[2018-12-25] MEDS ORDERED: Acetaminophen 325 MG TAB PO PRN (17:30)
[2018-12-25] MEDS ORDERED: Ondansetron PF 4 MG/2 ML Vial IVP PRN (17:30)
[2018-12-25] MEDS ORDERED: Warfarin Sodium 5 MG TAB PO SCH (19:00)
[2018-12-25 20:45] LABS: PTT 38.9 SEC (22.9-36.1); Prothrombin Time 39.4 SEC (12.0-14.7)
[2018-12-25 20:48] LABS: INR-International Normal Ratio 4.1
[2018-12-25 20:57] LABS: Anion Gap 16 mmol/L (10-20); BUN (Urea Nitrogen) 31 mg/dL (9.8-20.1); Calc. Creatinine Clearance 35 mL/min (70-130); Calcium 9.2 mg/dL (7.8-10.44); Carbon Dioxide 23 mmol/L (23-31); Chloride 100 mmol/L (98-107); Estimated GFR-MDRD 27; Glucose 90 mg/dL (80-115); Magnesium 1.8 mg/dL (1.6-2.6); Potassium 3.7 mmol/L (3.5-5.1); Sodium 135 mmol/L (136-145)
[2018-12-25 20:59] LABS: Troponin I 0.027 ng/mL (< 0.028)
[2018-12-25] MEDS ORDERED: Nortriptyline HCl 25 MG CAP PO SCH (21:00)
[2018-12-25] MEDS: Carvedilol 6.25 MG TAB PO SCH (21:39)
[2018-12-25] MEDS: Atorvastatin Calcium 10 MG TAB PO SCH (21:40)
[2018-12-25] MEDS: levETIRAcetam 500 MG TAB PO SCH (21:40)
--- NOTE | 2018-12-25 22:24 | HP ---
PRIMARY CARE PHYSICIAN: Romero Tompkins MD. CHIEF COMPLAINT: Chest pain. HISTORY OF PRESENT ILLNESS: Ms. Pinto is a 68-year-old female, with past medical history of hypertension, hyperlipidemia, diabetes mellitus type 2, atrial fibrillation status post ablation in 2009, history of PE on Coumadin, who had presented to the ED earlier today after worsening chest pain that she felt earlier this morning. She was recently discharged from the hospital yesterday, which she underwent workup for chest pain rule out. She underwent a nuclear medicine cardiac stress test, which was found to be normal and an echocardiogram which showed an EF of 60% to 65% with grade 2 diastolic dysfunction, she was then later discharged and sent home with a goal to follow up with her media traffic manager in 2 weeks to further assess the need for a cardiac catheterization as an outpatient basis. She states, however, throughout the night, pain started to get worse, which had caused her to be seen in the ED. It was found that she had suffered from an acute kidney injury with an elevated creatinine of 2.34, which had appeared to be over her baseline, which was 0.79, 12/23/2018. Her initial troponin was found to be less than 0.010 and her pain resolved prior to arrival. Blood pressure and other vital signs remained stable, and there was no further changes on her EKG demonstrated. She had received a total of 1 L of normal saline and was given a dose of aspirin in the ED and later transferred up to the telemetry floor for further monitoring of her chest pain. At that time, she had denied any fever, chills, any headache, blurred vision, dizziness, any further chest pain, palpitation, shortness of breath, abdominal pain, nausea, or vomiting. She states that her primary media traffic manager is Dr. Smith, however, was seen by Dr. Fair during the last admission. REVIEW OF SYSTEMS: All other systems reviewed and found to be negative unless mentioned in the HPI. PAST MEDICAL HISTORY: Hypertension, hyperlipidemia, atrial fibrillation status post ablation in 2009, diabetes mellitus type 2, fibromyalgia, osteoarthritis, history of PE, currently on Coumadin. PAST SURGICAL HISTORY: Gastric bypass in 2004, heart surgery in 1971, heart ablation in 2009, and hysterectomy in 1987. PSYCHIATRIC HISTORY: None. SOCIAL HISTORY: The patient denies any alcohol or illicit drug use. She states that she is a former smoker and quit more than 10 years ago. ALLERGIES: HYDROCODONE AND SULFA. CURRENT HOME MEDICATIONS: 1. Citalopram 20 mg oral every morning. 2. Simvastatin 20 mg oral at bedtime. 3. Metformin 500 mg oral daily. 4. Warfarin 5 mg oral daily. 5. Carvedilol 12.5 mg oral twice daily. 6. Nortriptyline 100 mg oral at bedtime. 7. Gabapentin 300 mg oral 3 times daily. 8. Keppra 500 mg oral twice daily. 9. Ferrous sulfate 325 mg daily. 10. Diazepam 1 tablet oral every 8 hours as needed for muscle spasm. 11. Protonix 40 mg oral daily. 12. Acetaminophen with codeine 1 tablet oral every 4 hours as needed for pain. 13. Baclofen 10 mg oral 3 times daily as needed for muscle spasms. PHYSICAL EXAMINATION: VITAL SIGNS: BP 120/65, pulse 58, respirations 16, temp 97.6, O2 saturation 97% on 2 L of oxygen via nasal cannula. GENERAL: The patient is awake, alert, and oriented x3. She is currently lying comfortably in bed and in no acute distress. HEENT: Atraumatic, normocephalic. Pupils are round and reactive to light. Extraocular muscles intact. Moist mucous membranes noted. CARDIOVASCULAR: Positive S1 and S2. Regular rate and rhythm. No murmur auscultated. RESPIRATORY: Clear to auscultation bilaterally. No wheezes, rales, or rhonchi. ABDOMEN: Soft, nontender. Bowel sounds present. EXTREMITIES: Moves all extremities equal without cyanosis or edema. NEUROLOGIC: Cranial nerves 2 through 12 grossly intact. No focal deficits noted. Speech intact and normal. Gait not assessed. The patient is alert and oriented x3. SKIN: Warm, dry, and intact. No rashes. No ulceration noted. PSYCHIATRIC: Good mood and affect. LABORATORY DATA: WBC 9.5, RBC 4.39, hemoglobin 12.0, platelets 296. Sodium 137, potassium 3.9, anion gap 20, BUN 30, creatinine 2.34, estimated GFR 25. Troponin less than 0.010. DIAGNOSTIC IMAGING: Two-view chest x-ray showed cardiomegaly with no acute lung process. Recent cardiac workup included an echocardiogram which revealed an EF of 60% to 65% with grade 2 diastolic dysfunction. She also had a normal cardiac stress test on 12/24/2018. ASSESSMENT AND PLAN: 1. Chest pain due to her history and in being high risk. We will place a consult for Cardiology for further evaluation and we will trend her cardiac enzymes, so far they are negative. She had recently had an echocardiogram and cardiac stress test; however, Dr. Fair, did state that she was also considering cardiac catheterization if her chest pain not worsened. The patient's primary media traffic manager is Dr. Smith. 2. Acute kidney injury. She was treated with IV fluid with normal saline down in the ED. We will monitor a BMP. We will hold all nephrotoxic medications at this time. 3. History of hypertension, currently stable. We will resume her home medications. 4. Hyperlipidemia. Continue home statin. 5. History of coronary artery disease. 6. Diabetes mellitus type 2. Hold home dose of metformin and we will place the patient on insulin sliding scale with frequent Accu-Cheks. 7. History of pulmonary embolism, currently on Coumadin. We will check PT, PTT, and INR and change dose as needed. 8. Deep venous thrombosis and gastrointestinal prophylaxis. 9. Code status is full code. DISPOSITION: Pending further workup and clinical findings. Job ID: [id number]
[2018-12-26 00:08] LABS: Troponin I 0.025 ng/mL (< 0.028)
[2018-12-26 07:17] LABS: #Eosinphils 0.1 thou/uL (0.0-0.7); #Lymphocytes 2.1 thou/uL (1.20-3.40); #Monocytes 0.6 thou/uL (0.11-0.59); #Neutrophils 4.7 thou/uL (1.40-6.50); %Basophils 0.3 % (0.0-1.0); %Eosinophils 1.9 % (0.0-10.0); %Lymphocytes 27.6 % (21.0-51.0); %Monocytes 7.8 % (0.0-10.0); %Neutrophils 62.4 % (42.0-75.0); Hemoglobin 11.4 g/dL (12.0-16.0); Mean Corpuscular HGB CONC 32.1 g/dL (32.0-36.0); Mean Corpuscular Volume 84.2 fL (78.0-98.0); Mean Platelet Volume 8.1 fL (7.4-10.4); Platelet Count 213 thou/uL (130-400); Red Blood Cell (RBC) Count 4.22 mill/uL (4.20-5.40); White Blood Cell (WBC) Count 7.5 thou/uL (4.8-10.8)
[2018-12-26 07:23] LABS: PTT 44.3 SEC (22.9-36.1); Prothrombin Time 43.4 SEC (12.0-14.7)
[2018-12-26 07:25] LABS: INR-International Normal Ratio 4.6
[2018-12-26 07:54] LABS: Potassium 3.6 mmol/L (3.5-5.1); Sodium 136 mmol/L (136-145)
[2018-12-26 07:55] LABS: Anion Gap 18 mmol/L (10-20); BUN (Urea Nitrogen) 35 mg/dL (9.8-20.1); Calc. Creatinine Clearance 36 mL/min (70-130); Carbon Dioxide 20 mmol/L (23-31); Chloride 102 mmol/L (98-107); Estimated GFR-MDRD 28
[2018-12-26 07:56] LABS: Calcium 9.5 mg/dL (7.8-10.44); Cardiac Risk Less than 4.5 (Less than 4.5); Cholesterol 133 mg/dL (< 200 Desired); Glucose 124 mg/dL (80-115); HDL Cholesterol 50 mg/dL (>60 Neg Risk); LDL Cholesterol, Calculated 65 mg/dL; Triglycerides 90 mg/dL (Less than 150)
[2018-12-26] MEDS: Carvedilol 6.25 MG TAB PO SCH (08:44)
[2018-12-26] MEDS: levETIRAcetam 500 MG TAB PO SCH ×2 (08:44→21:46)
[2018-12-26] MEDS: Ferrous Sulfate 325 MG TAB PO SCH (08:44)
[2018-12-26] MEDS ORDERED: FLU VACC TS2019-20(65YR UP)/PF 180 MCG/0.5 ML SYRINGE IM ONE (09:00)
[2018-12-26] MEDS ORDERED: Prevnar 13-Val Conj/PF 0.5 ML SYRINGE IM ONE (09:00)
--- NOTE | 2018-12-26 09:22 | PDOC.CPN ---
- Subjective Date: 12/26/18 Time: 09:38 Interval history: the pt seen and examined. No overnight events. No cardiac complaints. - Objective Allergies/Adverse Reactions: Allergies Allergy/AdvReac Type Severity Reaction Status Date / Time hydrocodone Allergy Verified 12/22/18 03:44 Sulfa (Sulfonamide Allergy Verified 12/22/18 03:44 Antibiotics) Visit Medications: Current Medications Atorvastatin Calcium (Lipitor) 10 mg PO HS [facility] Last Admin: 12/25/18 21:40 Dose: 10 mg Carvedilol (Coreg) 12.5 mg PO BID [facility] Last Admin: 12/26/18 08:44 Dose: 12.5 mg Ferrous Sulfate (Feosol) 325 mg PO DAILY [facility] Last Admin: 12/26/18 08:44 Dose: 325 mg Levetiracetam (Keppra) 500 mg PO BID [facility] Last Admin: 12/26/18 08:44 Dose: 500 mg Miscellaneous Medication (Pharmacy To Dose) 1 each PO PRN PRN PRN Reason: Pharmacy to dose Nortriptyline HCl (Pamelor) 100 mg PO HS [facility] Last Admin: 12/25/18 21:38 Dose: 100 mg Pantoprazole Sodium (Protonix) 40 mg PO DAILY [facility] Last Admin: 12/26/18 08:44 Dose: 40 mg Vital Signs & Weight: Vital Signs Temp Pulse Resp BP BP Pulse Ox 12/26/18 08:44 136/75 12/26/18 07:23 97.9 F 66 20 128/74 96 12/26/18 04:47 97.2 F L 52 L 13 93/58 L 97 12/25/18 23:46 97.2 F L 58 L 13 86/52 L 99 12/25/18 21:39 136/75 Weight 197 lb 1.6 oz - Physical Exam General: alert & oriented x3 HEENT: mucus membranes moist Neck: supple neck Cardiac: regular rate and rhythm, S1/S2 Lungs: clear to auscultation Neuro: cranial nerve 2-12 intact Abdomen: unremarkable Skin: clear Musculoskeletal: normal range of motion, other (uses a cane) - Labs Result Diagrams: 12/26/18 07:02 12/26/18 07:02 Troponin/CKMB Troponin I 0.025 ng/mL (< 0.028) 12/25/18 23:45 - Telemetry Sinus rhythms and dysrhythmias: sinus rhythm - Assessment/Plan Assessment/Plan: 1. S/p Syncopal episode on 12/22/2018 - the pt stated she ate well at lunch; 2/ 2 seizure, DM, or possible arrhythmia? possible LINQ placement? 2. CP - the pain at Lt MS border increase/worse with palpitation to the site; possible from muscle etiology; ECG and trop are WNLs; cont. to monitor 3. DANITZA - renal consult is ordered today 4. CAD with hx of CABG in 1970s and s/p LHC in 2008 with 20% stenosis in dist RCA and 20% in PDA; Stress test on 12/23/2018 showed no reversible ischemia and hypokinesis/dyskinesis in septum/inferior LV wall with EF 50% - possible LHC with normal renal function 5. SOB - stable with RA; possible CTA chest with normal renal function; On Coumadin with INR > 4 today 6. Hx of Afib with s/p RFA in 2009 - in SR; on Coreg and Coumadin 7. HTN - stable 8. HLD - 9. Seizure - 10. Hx of PE - on Coumadin 11. DM type 2 - 12. RBBB - new finding at last admission; stress test in 11/2018 was normal MAR reviewed * Echo in 11/2018 with EF 60-65%, grade II dd, mod dilated LA, mod ERA,, mild MR , mod TR, RVSP 43 mmHg, and dilated Arotic root 4.2cm * Stress test on 12/23/2018 showed no reversible ischemia and hypokinesis/ dyskinesis in septum/inferior LV wall with EF 50%
[2018-12-26 11:37] LABS: Hemoglobin 10.8 g/dL (12.0-16.0); Platelet Count 239 thou/uL (130-400)
[2018-12-26] MEDS ORDERED: Gabapentin 300 MG CAP PO PRN (16:22)
[2018-12-26] MEDS ORDERED: Dextrose 50% Abboject 50 ML SYRINGE SLOW IVP PRN (16:31)
[2018-12-26] MEDS ORDERED: Dextrose 5% in Water 1,000 ML IV PRN (16:31)
[2018-12-26] MEDS ORDERED: Insulin Regular 300 UNITS/3 ML VIAL SC PRN ×2 (16:31)
[2018-12-26] MEDS ORDERED: Polyethylene Glycol 3350 17 GM Packet PO PRN (16:41)
[2018-12-26] MEDS ORDERED: Sodium Chloride 0.9% 1,000 ML IV SCH (16:45)
[2018-12-26] MEDS ORDERED: Warfarin Sodium 5 MG TAB PO SCH (17:00)
[2018-12-26] MEDS: Sodium Chloride 0.9% 1,000 ML IV SCH (17:17)
--- NOTE | 2018-12-26 18:02 | CON ---
DATE OF CONSULTATION: CONSULTING PHYSICIAN: Lydia Hagan MD REQUESTING PHYSICIAN: Dr. Degroot. REASON FOR CONSULTATION: Acute kidney injury. IMPRESSION: Acute kidney injury. This is likely hemodynamically mediated in the context of improved blood pressure control in a patient that used to be severely hypertensive decrease in renal perfusion. PLAN: We will recommend allowing the blood pressure of this patient to drift upward and gradually bring the blood pressure down, but I do believe that the sudden drop in the blood pressure of this patient from the 190s systolic down to 80s and 90s, occasionally up to the one-teens pretty much affected renal perfusion and possibly contributed to the fall at home as the patient seems to have also passed out. Hold metformin until creatinine improves. HISTORY OF PRESENT ILLNESS: History is that of a 68-year-old female patient, who just got discharged from here with normal renal function with creatinine of 0.79, having been treated for chest pain. The patient was noted to be severely hypertensive during the hospitalization with systolic blood pressure in the 190s. Additional antihypertensive medications were added in the way of hydralazine with improvement in the hemodynamics with systolic blood pressure dropping down to as low as 80s and 90s. In fact, the patient did give history of passing out at home. On presentation yesterday, the patient noted with a creatinine that has jumped from the baseline creatinine of 0.79 to about 2.16. The patient denies use of any nephrotoxic agents. As a result of these findings, decision has been taken to involve Renal in the management of this case. PAST MEDICAL HISTORY: Significant for hypertension; dyslipidemia; atrial fibrillation status post ablation; type 2 diabetes; fibromyalgia; osteoarthritis; history of PE, on Coumadin. MEDICATIONS: Reviewed and as documented on [facility]. ALLERGIES: TO HYDROCODONE AND SULFA. SOCIAL HISTORY: No alcohol. No tobacco. No illicit drug use. Remote tobacco use, more than 10 years ago. REVIEW OF SYSTEMS: As documented in the body of history. All other systems were reviewed and found not to be significantly related to present illness. PHYSICAL EXAMINATION: GENERAL: The patient was found not to be in any obvious distress. VITAL SIGNS: Noted with the following vital signs; afebrile, temperature 97.6; O2 saturation 97%, pulse of 58, blood pressure that hovers between the 80s to 110. HEENT: Unremarkable. CARDIOVASCULAR SYSTEM: First and second heart sounds were heard. RESPIRATORY SYSTEM: Clear to auscultation. DIGESTIVE SYSTEM: Revealed a benign abdomen with positive bowel sounds. EXTREMITIES: No peripheral edema. SKIN: No new gross rash. LYMPHATICS: No peripheral lymphadenopathy. SUMMARY: A 68-year-old female patient, who was recently discharged from here, re-presented here and noted with the worsening renal function. Thank you for this consultation. We will follow with you. I do agree with gentle rehydration of this patient until hemodynamics are stabilized. Deescalate antihypertensive medications also. Job ID: [id number]
[2018-12-26] MEDS ORDERED: Carvedilol 3.125 MG TAB PO SCH (21:00)
[2018-12-26] MEDS ORDERED: Gabapentin 300 MG CAP PO SCH (21:00)
[2018-12-26] MEDS ORDERED: Acetaminophen 325 MG TAB PO PRN (21:23)
[2018-12-26] MEDS ORDERED: Acetaminophen/Codeine 30-300mg Tablet PO PRN (21:28)
[2018-12-26] MEDS: Gabapentin 100 MG CAP PO SCH (21:46)
[2018-12-26] MEDS: Atorvastatin Calcium 10 MG TAB PO SCH (21:46)
[2018-12-26] MEDS: Carvedilol 3.125 MG TAB PO SCH (21:46)
[2018-12-26] MEDS: Senokot S 8.6-50 MG TAB PO SCH (21:47)
[2018-12-26] MEDS: Nortriptyline HCl 25 MG CAP PO SCH (21:47)
--- NOTE | 2018-12-26 21:54 | PDOC.HOSPP ---
- Subjective Encounter Date: 12/26/18 Encounter Time: 16:00 Subjective: Patient seen and examined for DANITZA/AMS. Mentation improving. No CP. No new complaints. No overnight events - Objective Vital Signs & Weight: Vital Signs (12 hours) Temp Pulse Resp BP Pulse Ox 12/26/18 19:55 97.6 F 69 16 126/62 93 L 12/26/18 15:54 97.4 F L 60 16 113/61 98 12/26/18 11:47 97.5 F L 54 L 16 101/55 L 98 Weight Weight 197 lb 1.6 oz I&O: 12/25/18 12/26/18 12/27/18 06:59 06:59 06:59 Output Total 1150 Balance -1150 Result Diagrams: 12/26/18 11:24 12/26/18 07:02 Additional Labs: Accuchecks 12/26/18 12/26/18 16:41 11:08 POC Glucose 64 L 224 H Laboratory Tests 12/26/18 12/26/18 07:02 07:02 INR 4.6 H* Creatinine 2.16 H Radiology Reviewed by me: Yes (CXR - neg) EKG Reviewed by me: Yes (Tele SR) Hospitalist ROS - Review of Systems Respiratory: denies: cough, dry, shortness of breath, hemoptysis, SOB with excertion, pleuritic pain, sputum, wheezing, other Gastrointestinal: denies: nausea, vomiting, abdominal pain, diarrhea, constipation, melena, hematochezia, other - Medication Medications: Active Medications Generic Name Dose Route Start Last Admin Trade Name Freq PRN Reason Stop Dose Admin Acetaminophen 650 mg 12/26/18 21:23 12/26/18 21:46 Tylenol PO 650 mg Q6H PRN Administration Moderate Pain (4-6) Atorvastatin Calcium 10 mg 12/25/18 21:00 12/26/18 21:46 Lipitor PO 10 mg HS TIM Administration Carvedilol 3.125 mg 12/26/18 21:00 12/26/18 21:46 Coreg PO 3.125 mg BID TIM Administration Ferrous Sulfate 325 mg 12/26/18 09:00 12/26/18 08:44 Feosol PO 325 mg DAILY TIM Administration Gabapentin 100 mg 12/26/18 21:00 12/26/18 21:46 Neurontin PO 100 mg BID TIM Administration Sodium Chloride 1,000 mls @ 100 mls/hr 12/26/18 16:45 12/26/18 17:17 Normal Saline 0.9% IV 1,000 mls .Q10H TIM Administration Levetiracetam 500 mg 12/25/18 21:00 12/26/18 21:46 Keppra PO 500 mg BID TIM Administration Nortriptyline HCl 25 mg 12/26/18 21:00 12/26/18 21:47 Pamelor PO 25 mg HS TIM Administration Pantoprazole Sodium 40 mg 12/26/18 09:00 12/26/18 08:44 Protonix PO 40 mg DAILY TIM Administration Senna/Docusate Sodium 1 tab 12/26/18 21:00 12/26/18 21:47 Senokot S PO 1 tab BID TIM Administration - Exam General Appearance: NAD Heart: RRR, no gallops, no rubs Heart - other findings: no heaves Respiratory: CTAB, no wheezes, no rales, no ronchi, normal chest expansion Gastrointestinal: soft, non-tender, non-distended, normal bowel sounds Extremities: no edema Neurological: cranial nerve grossly intact, normal sensation to touch, no weakness, no focal deficits Psychiatric: normal affect, A&O x 3 Hosp A/P - Plan CP DANITZA Acute Metabolic Encephalopathy Supratherapeutic INR CAD s/p CABG HTN HLD Obesity 33.8 h/o PE PLAN: IVF Reduce Coreg to 3.125 Hold Metformin AM labs Hold Warfarin Cardio/Nephro input appreciated
[2018-12-27] MEDS: Sodium Chloride 0.9% 1,000 ML IV SCH ×2 (02:59→16:20)
[2018-12-27 04:33] LABS: #Eosinphils 0.1 thou/uL (0.0-0.7); #Lymphocytes 1.9 thou/uL (1.20-3.40); #Monocytes 0.6 thou/uL (0.11-0.59); #Neutrophils 5.5 thou/uL (1.40-6.50); %Basophils 0.5 % (0.0-1.0); %Eosinophils 1.4 % (0.0-10.0); %Lymphocytes 23.2 % (21.0-51.0); %Monocytes 6.9 % (0.0-10.0); Mean Corpuscular HGB CONC 31.8 g/dL (32.0-36.0); Mean Corpuscular Hemoglobin 27.2 pg (27.0-31.0); Mean Corpuscular Volume 85.5 fL (78.0-98.0); Mean Platelet Volume 7.9 fL (7.4-10.4); Platelet Count 278 thou/uL (130-400)
[2018-12-27 04:37] LABS: INR-International Normal Ratio 2.5; Prothrombin Time 26.6 SEC (12.0-14.7)
[2018-12-27 04:58] LABS: Anion Gap 15 mmol/L (10-20); BUN (Urea Nitrogen) 23 mg/dL (9.8-20.1); Calc. Creatinine Clearance 74 mL/min (70-130); Carbon Dioxide 25 mmol/L (23-31); Chloride 104 mmol/L (98-107); Estimated GFR-MDRD 63; Glucose 88 mg/dL (80-115); Potassium 3.8 mmol/L (3.5-5.1); Sodium 140 mmol/L (136-145)
[2018-12-27] MEDS: Carvedilol 3.125 MG TAB PO SCH (08:10)
[2018-12-27] MEDS: levETIRAcetam 500 MG TAB PO SCH ×2 (08:10→22:02)
[2018-12-27] MEDS: Ferrous Sulfate 325 MG TAB PO SCH (08:10)
[2018-12-27] MEDS: Gabapentin 100 MG CAP PO SCH ×2 (08:10→22:03)
[2018-12-27] MEDS: Senokot S 8.6-50 MG TAB PO SCH ×2 (08:10→22:03)
[2018-12-27] MEDS ORDERED: Communication Order-Pharmacy FS SCH (09:00)
--- NOTE | 2018-12-27 11:06 | PDOC.CPN ---
- Subjective Date: 12/27/18 Time: 11:13 Interval history: The pt seen and examined. No overnight events. No cardiac complaints. - Objective Allergies/Adverse Reactions: Allergies Allergy/AdvReac Type Severity Reaction Status Date / Time hydrocodone Allergy Verified 12/22/18 03:44 Sulfa (Sulfonamide Allergy Verified 12/22/18 03:44 Antibiotics) Visit Medications: Current Medications Acetaminophen (Tylenol) 650 mg PO Q6H PRN PRN Reason: Moderate Pain (4-6) Last Admin: 12/26/18 21:46 Dose: 650 mg Acetaminophen/Codeine Phosphate (Tylenol #3) 1 tab PO Q4HR PRN PRN Reason: Pain Amlodipine Besylate (Norvasc) 5 mg PO DAILY [facility] Atorvastatin Calcium (Lipitor) 10 mg PO HS [facility] Last Admin: 12/26/18 21:46 Dose: 10 mg Carvedilol (Coreg) 3.125 mg PO BID [facility] Last Admin: 12/27/18 08:10 Dose: 3.125 mg Dextrose/Water (Dextrose 50%) 25 gm SLOW IVP PRN PRN PRN Reason: Hypoglycemia Ferrous Sulfate (Feosol) 325 mg PO DAILY [facility] Last Admin: 12/27/18 08:10 Dose: 325 mg Gabapentin (Neurontin) 100 mg PO BID [facility] Last Admin: 12/27/18 08:10 Dose: 100 mg Glucagon (Glucagon) 1 mg IM PRN PRN PRN Reason: Hypoglycemia Dextrose/Water (D5w) 1,000 mls @ 0 mls/hr IV .Q0M PRN PRN Reason: Hypoglycemia Sodium Chloride (Normal Saline 0.9%) 1,000 mls @ 100 mls/hr IV .Q10H [facility] Last Admin: 12/27/18 02:59 Dose: 1,000 mls Insulin Human Regular (Humulin R) 0 units SC .MILD SLIDING SCALE PRN PRN Reason: Mild Correctional Scale Insulin Human Regular (Humulin R) 0 units SC .BEDTIME SLIDING SC PRN PRN Reason: Bedtime Correctional Scale Levetiracetam (Keppra) 500 mg PO BID [facility] Last Admin: 12/27/18 08:10 Dose: 500 mg Miscellaneous Information (Communication Order-Pharmacy) 0 each FS ONE [facility] Stop: 12/27/18 21:00 Miscellaneous Medication (Pharmacy To Dose) 1 each PO .WARFARIN [facility] Nortriptyline HCl (Pamelor) 25 mg PO HS [facility] Last Admin: 12/26/18 21:47 Dose: 25 mg Pantoprazole Sodium (Protonix) 40 mg PO DAILY [facility] Last Admin: 12/27/18 08:10 Dose: 40 mg Polyethylene Glycol (Miralax) 17 gm PO DAILY PRN PRN Reason: Constipation Senna/Docusate Sodium (Senokot S) 1 tab PO BID [facility] Last Admin: 12/27/18 08:10 Dose: 1 tab Sodium Chloride (Flush - Normal Saline) 10 ml IVF PRN PRN PRN Reason: Saline Flush Warfarin Sodium (Coumadin) 4 mg PO 1700 [facility] Vital Signs & Weight: Vital Signs Temp Pulse Resp BP Pulse Ox 12/27/18 07:56 99 12/27/18 07:17 97.5 F L 76 20 172/94 H 99 12/27/18 03:00 98.4 F 71 16 161/85 H 93 L 12/26/18 23:05 98.2 F 67 16 148/80 H 96 Weight 197 lb 1.6 oz - Physical Exam General: alert & oriented x3 HEENT: mucus membranes moist Neck: supple neck Cardiac: regular rate and rhythm, S1/S2 Lungs: clear to auscultation Neuro: cranial nerve 2-12 intact Abdomen: unremarkable Skin: clear Musculoskeletal: normal range of motion - Labs Result Diagrams: 12/27/18 03:54 12/27/18 03:53 Troponin/CKMB Troponin I 0.025 ng/mL (< 0.028) 12/25/18 23:45 - Telemetry Sinus rhythms and dysrhythmias: sinus rhythm - Assessment/Plan Assessment/Plan: 1. S/p Syncopal episode on 12/22/2018 - the pt stated she ate well at lunch; possible 2/2 seizure, DM, or possible arrhythmia? possible LINQ placement? 2. CP - the pain at Lt MS border increase/worse with palpitation to the site; possible from muscle etiology; ECG and trop are WNLs; Plan for LHC on Sunday, by Dr Fair 3. 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 CAD with hx of CABG in 1970s and s/p LHC in 2008 with 20% stenosis in dist RCA and 20% in PDA; Stress test on 12/23/2018 showed no reversible ischemia and hypokinesis/dyskinesis in septum/inferior LV wall with EF 50% - possible LHC with normal renal function 5. SOB - stable with RA; possible CTA chest with normal renal function; On Coumadin with INR > 4 today 6. Hx of Afib with s/p RFA in 2009 - in SR; on Coreg and Coumadin 7. HTN - will start Norvasc 5mg qd from today 8. HLD - 9. Seizure - 10. Hx of PE - Coumadin is on hold due to elevated INR level; will start Lovenox BID when INR level <2.0 11. DM type 2 - 12. RBBB - new finding at last admission; stress test in 11/2018 was normal MAR reviewed * Echo in 11/2018 with EF 60-65%, grade II dd, mod dilated LA, mod ERA,, mild MR , mod TR, RVSP 43 mmHg, and dilated Arotic root 4.2cm * Stress test on 12/23/2018 showed no reversible ischemia and hypokinesis/ dyskinesis in septum/inferior LV wall with EF 50% * Plan for LHC on 12/30/[address] Fair * will start Lovenox BID when INR <2.0. Pt. seen and eval. she feels better. Minimal chest discomfort. Chest clear. RRR. I will repeat the labs tomorrow. Very odd that the creat. is back to normal overnight. I hope this is not a lab error and that she has significantly improved. The etiology is unclear. I will plan for a cath when she is stable .susy
[2018-12-27] MEDS ORDERED: Amlodipine 5 MG TAB PO SCH (11:15)
--- NOTE | 2018-12-27 15:29 | PRG ---
DATE OF SERVICE: 12/27/2018 SUBJECTIVE: The patient was seen and examined, seems to be doing much better, noted with the following vital signs. OBJECTIVE: VITAL SIGNS: Afebrile. Temperature 97.8, pulse 66, respiratory rate of 16, O2 saturations 97%, and blood pressure 147/96. HEENT: Unremarkable. CARDIOVASCULAR SYSTEM: First and second heart sounds were heard. RESPIRATORY SYSTEM: Clear to auscultation. DIGESTIVE SYSTEM: Revealed a benign abdomen with positive bowel sounds. EXTREMITIES: No peripheral edema. SKIN: No new gross rash. LYMPHATICS: No peripheral lymphadenopathy. LABORATORY INVESTIGATION: Showed a creatinine down to 1.06. IMPRESSION: Acute kidney injury, hemodynamically mediated in the context of improved blood pressure control. PLAN: 1. Discontinue IV fluid. 2. Allow the blood pressure to hover anywhere around 140 to 150, and gradually over time decrease the blood pressure toward the goal of about 120 to 130. 3. There is no need to continue IV fluid on this patient, in any case during the time of exposure to contrast for cardiac catheterization, the patient may receive gentle rehydration in the form of contrast nephropathy prophylaxis. 4. Further management will be dependent on the clinical course. Job ID: [id number]
[2018-12-27] MEDS: Carvedilol 6.25 MG TAB PO SCH (16:12)
[2018-12-27] MEDS ORDERED: Warfarin Sodium 2 MG TAB PO SCH ×2 (17:00)
[2018-12-27] MEDS ORDERED: Warfarin Sodium 5 MG TAB PO SCH (17:00)
[2018-12-27] MEDS ORDERED: Carvedilol 6.25 MG TAB PO SCH (17:00)
[2018-12-27] MEDS: Atorvastatin Calcium 10 MG TAB PO SCH (22:03)
[2018-12-27] MEDS: Nortriptyline HCl 25 MG CAP PO SCH (22:03)
[2018-12-27] MEDS ORDERED: cloNIDine 0.1 MG TAB PO PRN (22:42)
--- NOTE | 2018-12-27 23:22 | PDOC.HOSPP ---
- Subjective Encounter Date: 12/27/18 Encounter Time: 14:00 Subjective: Patient seen and examined for syncope/AMS/DANITZA. No CP. No new complaints. No overnight events - Objective Vital Signs & Weight: Vital Signs (12 hours) Temp Pulse Resp BP BP Pulse Ox 12/27/18 16:12 136/75 12/27/18 16:00 97.8 F 71 18 162/95 H 96 12/27/18 15:25 66 12/27/18 11:56 97.8 F 66 16 147/96 H 97 Weight Weight 197 lb 1.6 oz I&O: 12/26/18 12/27/18 12/28/18 06:59 06:59 06:59 Intake Total 1680 720 Output Total 1150 1100 Balance 530 -380 Result Diagrams: 12/27/18 03:54 12/27/18 03:53 Additional Labs: Accuchecks 12/27/18 12/27/18 12/27/18 21:32 17:15 10:41 POC Glucose 72 96 88 12/27/18 12/27/18 05:39 02:11 POC Glucose 93 125 H EKG Reviewed by me: Yes (Tele SR) Hospitalist ROS - Review of Systems Respiratory: denies: cough, dry, shortness of breath, hemoptysis, SOB with excertion, pleuritic pain, sputum, wheezing, other Cardiovascular: denies: chest pain, palpitations, orthopnea, paroxysmal noc. dyspnea, edema, light headedness, other Gastrointestinal: denies: nausea, vomiting, abdominal pain, diarrhea, constipation, melena, hematochezia, other - Medication Medications: Active Medications Generic Name Dose Route Start Last Admin Trade Name Freq PRN Reason Stop Dose Admin Acetaminophen 650 mg 12/26/18 21:23 12/26/18 21:46 Tylenol PO 650 mg Q6H PRN Administration Moderate Pain (4-6) Atorvastatin Calcium 10 mg 12/25/18 21:00 12/27/18 22:03 Lipitor PO 10 mg HS TIM Administration Carvedilol 12.5 mg 12/27/18 17:00 12/27/18 16:12 Coreg PO 12.5 mg BID-WM TIM Administration Ferrous Sulfate 325 mg 12/26/18 09:00 12/27/18 08:10 Feosol PO 325 mg DAILY TIM Administration Gabapentin 100 mg 12/26/18 21:00 12/27/18 22:03 Neurontin PO 100 mg BID TIM Administration Levetiracetam 500 mg 12/25/18 21:00 12/27/18 22:02 Keppra PO 500 mg BID TIM Administration Nortriptyline HCl 25 mg 12/26/18 21:00 12/27/18 22:03 Pamelor PO 25 mg HS TIM Administration Pantoprazole Sodium 40 mg 12/26/18 09:00 12/27/18 08:10 Protonix PO 40 mg DAILY TIM Administration Senna/Docusate Sodium 1 tab 12/26/18 21:00 12/27/18 22:03 Senokot S PO 1 tab BID TIM Administration Sodium Chloride 10 ml 12/26/18 21:02 12/27/18 22:04 Flush - Normal Saline IVF 10 ml PRN PRN Administration Saline Flush - Exam General Appearance: NAD Neck: supple, no JVD Heart: RRR, no rubs Respiratory: CTAB, no wheezes, no ronchi Gastrointestinal: non-distended, normal bowel sounds Extremities: no edema Hosp A/P - Plan DVT proph w/SCDs CP/Syncope DANITZA Acute Metabolic Encephalopathy Supratherapeutic INR CAD s/p CABG HTN HLD Obesity 33.8 h/o PE PLAN: DC IVF Change Coreg to 12.5 mg BID (home dose) Started on Amlodipine Hold Metformin Cath on Sunday
[2018-12-28] MEDS ORDERED: Carvedilol 6.25 MG TAB PO SCH ×2 (09:00→09:30)
[2018-12-28] MEDS ORDERED: Amlodipine 5 MG TAB PO SCH ×3 (09:00)
[2018-12-28] MEDS ORDERED: Insulin Regular 300 UNITS/3 ML VIAL SC PRN ×2 (09:18)
[2018-12-28] MEDS ORDERED: Dextrose 50% Abboject 50 ML SYRINGE SLOW IVP PRN (09:18)
[2018-12-28] MEDS ORDERED: Dextrose 5% in Water 1,000 ML IV PRN (09:18)
[2018-12-28] MEDS ORDERED: Polyethylene Glycol 3350 17 GM Packet PO PRN (09:25)
[2018-12-28] MEDS ORDERED: cloNIDine 0.1 MG TAB PO PRN (09:26)
[2018-12-28] MEDS ORDERED: Ferrous Sulfate 325 MG TAB PO SCH (09:30)
[2018-12-28] MEDS: Gabapentin 100 MG CAP PO SCH ×2 (09:46→20:49)
[2018-12-28] MEDS: Senokot S 8.6-50 MG TAB PO SCH ×2 (09:47→20:50)
[2018-12-28] MEDS: levETIRAcetam 500 MG TAB PO SCH ×2 (09:48→20:49)
[2018-12-28] MEDS: Acetaminophen 325 MG TAB PO PRN ×2 (09:55→20:50)
--- NOTE | 2018-12-28 10:06 | PDOC.CPN ---
- Subjective Date: 12/28/18 Time: 10:03 Interval history: C/O pain currently due to agitation. - Review of Systems General: denies: fever/chills, weight/appetite/sleep changes, night sweats, fatigue Respiratory: denies: cough, congestion, shortness of breath, exercise intolerance Cardiovascular: reports: chest pain Gastrointestinal: denies: nausea, vomiting, diarrhea, constipation, abd pain, GI bleeding Musculoskeletal: denies: pain, tenderness, stiffness, swelling, arthritis/ arthralgias Neurological: denies: numbness, syncope, seizure, weakness - Objective Allergies/Adverse Reactions: Allergies Allergy/AdvReac Type Severity Reaction Status Date / Time hydrocodone Allergy Verified 12/22/18 03:44 Sulfa (Sulfonamide Allergy Verified 12/22/18 03:44 Antibiotics) Visit Medications: Current Medications Acetaminophen (Tylenol) 650 mg PO Q6H PRN PRN Reason: Moderate Pain (4-6) Last Admin: 12/28/18 09:55 Dose: 650 mg Acetaminophen/Codeine Phosphate (Tylenol #3) 1 tab PO Q4HR PRN PRN Reason: Pain Amlodipine Besylate (Norvasc) 5 mg PO DAILY [facility] Last Admin: 12/28/18 09:47 Dose: 5 mg Atorvastatin Calcium (Lipitor) 10 mg PO [facility] Carvedilol (Coreg) 12.5 mg PO BID-[facility] Carvedilol (Coreg) 12.5 mg PO NOW [facility] Stop: 12/28/18 11:30 Last Admin: 12/28/18 09:49 Dose: 12.5 mg Clonidine (Catapres) 0.1 mg PO Q4H PRN PRN Reason: SBP > 180 Dextrose/Water (Dextrose 50%) 25 gm SLOW IVP PRN PRN PRN Reason: Hypoglycemia Ferrous Sulfate (Feosol) 325 mg PO QAM-[facility] Ferrous Sulfate (Feosol) 325 mg PO NOW [facility] Stop: 12/28/18 11:30 Last Admin: 12/28/18 09:49 Dose: 325 mg Gabapentin (Neurontin) 100 mg PO BID [facility] Last Admin: 12/28/18 09:46 Dose: 100 mg Glucagon (Glucagon) 1 mg IM PRN PRN PRN Reason: Hypoglycemia Dextrose/Water (D5w) 1,000 mls @ 0 mls/hr IV .Q0M PRN PRN Reason: Hypoglycemia Insulin Human Regular (Humulin R) 0 units SC .MILD SLIDING SCALE PRN PRN Reason: Mild Correctional Scale Insulin Human Regular (Humulin R) 0 units SC .BEDTIME SLIDING SC PRN PRN Reason: Bedtime Correctional Scale Levetiracetam (Keppra) 500 mg PO BID [facility] Last Admin: 12/28/18 09:48 Dose: 500 mg Miscellaneous Medication (Pharmacy To Dose) 1 each PO .WARFARIN [facility] Nortriptyline HCl (Pamelor) 25 mg PO HS [facility] Pantoprazole Sodium (Protonix) 40 mg PO DAILY [facility] Last Admin: 12/28/18 09:48 Dose: 40 mg Polyethylene Glycol (Miralax) 17 gm PO DAILY PRN PRN Reason: Constipation Senna/Docusate Sodium (Senokot S) 1 tab PO BID [facility] Last Admin: 12/28/18 09:47 Dose: 1 tab Sodium Chloride (Flush - Normal Saline) 10 ml IVF PRN PRN PRN Reason: Saline Flush Vital Signs & Weight: Vital Signs Temp Pulse Resp BP BP Pulse Ox 12/28/18 09:49 136/75 12/28/18 09:47 71 12/28/18 07:43 98.5 F 71 18 168/88 H 97 12/28/18 03:25 150/84 H 12/28/18 03:21 97.6 F 69 16 12/27/18 23:35 98.6 F 68 18 150/88 H 98 12/27/18 22:15 187/91 H Weight 188 lb - Physical Exam General: alert & oriented x3, appears well, no apparent distress HEENT: mucus membranes moist Neck: supple neck Cardiac: regular rate and rhythm, no murmur Lungs: clear to auscultation, no wheeze, rales, rhonchi Neuro: grossly intact Abdomen: soft, non-tender Extremities: no edema Skin: clear Musculoskeletal: normal range of motion - Labs Result Diagrams: 12/27/18 03:54 12/27/18 03:53 Troponin/CKMB Troponin I 0.025 ng/mL (< 0.028) 12/25/18 23:45 - Telemetry Sinus rhythms and dysrhythmias: sinus rhythm - Assessment/Plan Assessment/Plan: 1. Syncope 2. CP 3. LAZARA - resolved 4. CAD s/p CABG 5. AF s/p PVI in 2009 6. HTN Patient with c/o pain this morning, but more from agitation. Calming now. BP mildly elevated. About to receive AM meds. Plan for [facility] Sunday when INR stable. Pt seen and exaimned Doing better No symptoms Cath sunday if INR <1.8
[2018-12-28] MEDS ORDERED: Acetaminophen/Codeine 30-300mg Tablet PO PRN (10:18)
--- NOTE | 2018-12-28 12:03 | EKG ---
Test Reason : Blood Pressure : / mmHG Vent. Rate : 076 BPM Atrial Rate : 076 BPM P-R Int : 096 ms QRS Dur : 110 ms QT Int : 418 ms P-R-T Axes : -18 011 157 degrees QTc Int : 470 ms Sinus rhythm with short AK Incomplete right bundle branch block Left ventricular hypertrophy with repolarization abnormality Abnormal ECG Confirmed by OSMAN RICHMOND ([id number]), editor continuity and script FRANCOIS MURILLO ([id number]) on 12/28/2018 12:02:37 PM Referred By: Confirmed By:OSMAN RICHMOND
[2018-12-28] MEDS: Carvedilol 6.25 MG TAB PO SCH (17:52)
--- NOTE | 2018-12-28 17:52 | PDOC.HOSPP ---
- Subjective Encounter Date: 12/28/18 Encounter Time: 07:40 Subjective: Pt seen for followup re: chest pain. Pt reports having chest pain earlier today , now resolved. - Objective Vital Signs & Weight: Vital Signs (12 hours) Temp Pulse Resp BP BP BP BP 12/28/18 16:00 98.6 F 81 16 164/92 H 12/28/18 09:49 136/75 12/28/18 09:47 71 12/28/18 08:00 140/86 138/82 12/28/18 07:43 98.5 F 71 18 168/88 H BP Pulse Ox 12/28/18 16:00 96 12/28/18 09:49 12/28/18 09:47 12/28/18 08:00 146/84 H 12/28/18 07:43 97 Weight Weight 188 lb I&O: 12/27/18 12/28/18 12/29/18 06:59 06:59 06:59 Intake Total 1680 1220 1720 Output Total 1150 1850 1290 Balance 530 -630 430 Result Diagrams: 12/27/18 03:54 12/27/18 03:53 Additional Labs: Accuchecks 12/28/18 12/28/18 12/27/18 10:45 05:39 21:32 POC Glucose 123 H 72 72 Labs and MARs reviewed by me EKG Reviewed by me: Yes (Tele: NSR) Hospitalist ROS - Review of Systems Cardiovascular: reports: chest pain. denies: palpitations, orthopnea, paroxysmal noc. dyspnea, edema, light headedness Gastrointestinal: denies: nausea, vomiting, abdominal pain, diarrhea, constipation, melena, hematochezia - Medication Medications: Active Medications Generic Name Dose Route Start Last Admin Trade Name Freq PRN Reason Stop Dose Admin Acetaminophen 650 mg 12/28/18 09:26 12/28/18 09:55 Tylenol PO 650 mg Q6H PRN Administration Moderate Pain (4-6) Amlodipine Besylate 5 mg 12/28/18 09:00 12/28/18 09:47 Norvasc PO 5 mg DAILY TIM Administration Gabapentin 100 mg 12/28/18 09:00 12/28/18 09:46 Neurontin PO 100 mg BID TIM Administration Levetiracetam 500 mg 12/28/18 09:00 12/28/18 09:48 Keppra PO 500 mg BID TIM Administration Pantoprazole Sodium 40 mg 12/28/18 09:00 12/28/18 09:48 Protonix PO 40 mg DAILY TIM Administration Senna/Docusate Sodium 1 tab 12/28/18 09:00 12/28/18 09:47 Senokot S PO 1 tab BID TIM Administration - Exam General - other findings: Obese Eye: anicteric sclera ENT: moist mucosa Neck: supple, no JVD Heart: RRR, no rubs Respiratory: CTAB Gastrointestinal: soft, non-tender Extremities: no cyanosis Skin: no rashes Musculoskeletal: normal strength, no muscle wasting Psychiatric: normal affect, normal behavior Hosp A/P (1) Chest pain Code(s): R07.9 - CHEST PAIN, UNSPECIFIED Status: Acute (2) Syncope Code(s): R55 - SYNCOPE AND COLLAPSE Status: Acute (3) HTN (hypertension) Code(s): I10 - ESSENTIAL (PRIMARY) HYPERTENSION Status: Chronic (4) Dyslipidemia Code(s): E78.5 - HYPERLIPIDEMIA, UNSPECIFIED Status: Chronic (5) DANITZA (acute kidney injury) Code(s): N17.9 - ACUTE KIDNEY FAILURE, UNSPECIFIED Status: Resolved - Plan Pt to go for cath on Sunday, metformin is on hold. Blood pressure is better today. Good control of blood sugars. Check INR in AM. If below 2.0, start Lovenox.
[2018-12-28] MEDS: Atorvastatin Calcium 10 MG TAB PO SCH (20:49)
[2018-12-28] MEDS: Nortriptyline HCl 25 MG CAP PO SCH (20:50)
[2018-12-29] MEDS: Carvedilol 6.25 MG TAB PO SCH ×3 (07:18→16:43)
[2018-12-29] MEDS: Ferrous Sulfate 325 MG TAB PO SCH ×2 (07:19→08:48)
[2018-12-29] MEDS: Gabapentin 100 MG CAP PO SCH ×3 (07:19→20:30)
[2018-12-29] MEDS: Senokot S 8.6-50 MG TAB PO SCH ×3 (07:19→20:30)
[2018-12-29] MEDS: levETIRAcetam 500 MG TAB PO SCH ×3 (07:19→20:30)
--- NOTE | 2018-12-29 08:03 | PRG ---
DATE OF SERVICE: 12/28/2018 SUBJECTIVE: The patient was seen, noted with the following vital signs. OBJECTIVE: VITAL SIGNS: Afebrile. Temperature 98.1, pulse 78, respiratory rate 16, O2 saturations 98%, and blood pressure 163/95. HEENT EXAMINATION: Unremarkable. CARDIOVASCULAR SYSTEM: First and second heart sounds were heard. RESPIRATORY SYSTEM: Clear to auscultation. DIGESTIVE SYSTEM: Revealed a benign abdomen with positive bowel sounds. EXTREMITIES: No peripheral edema. SKIN EXAMINATION: No new gross rash. LYMPHATICS: No peripheral lymphadenopathy. IMPRESSION: Acute kidney injury, which seems to have improved and this is due to improvement in blood pressure control. PLAN: 1. We will recommend improving the blood pressure control in this patient only on gradual basis to avoid precipitating . 2. Avoid potentially-nephrotoxic agents. 3. Further management to be dependent on the clinical course. Job ID: [id number]
[2018-12-29] MEDS: Amlodipine 10 MG TAB PO SCH (08:47)
--- NOTE | 2018-12-29 10:57 | PDOC.CPN ---
- Subjective Date: 12/29/18 Time: 10:55 - Review of Systems General: denies: fever/chills, weight/appetite/sleep changes, night sweats, fatigue Respiratory: denies: cough, congestion, shortness of breath, exercise intolerance Cardiovascular: denies: chest pain, palpitation, edema, paroxysmal nocturnal dyspnea, orthopnea Gastrointestinal: denies: nausea, vomiting, diarrhea, constipation, abd pain, GI bleeding Musculoskeletal: denies: pain, tenderness, stiffness, swelling, arthritis/ arthralgias Neurological: denies: numbness, syncope, seizure, weakness - Objective Allergies/Adverse Reactions: Allergies Allergy/AdvReac Type Severity Reaction Status Date / Time hydrocodone Allergy Verified 12/22/18 03:44 Sulfa (Sulfonamide Allergy Verified 12/22/18 03:44 Antibiotics) Visit Medications: Current Medications Acetaminophen (Tylenol) 650 mg PO Q6H PRN PRN Reason: Moderate Pain (4-6) Last Admin: 12/28/18 20:50 Dose: 650 mg Acetaminophen/Codeine Phosphate (Tylenol #3) 1 tab PO Q4H PRN PRN Reason: Severe Pain (7-10) Amlodipine Besylate (Norvasc) 10 mg PO DAILY [facility] Last Admin: 12/29/18 08:47 Dose: 10 mg Atorvastatin Calcium (Lipitor) 10 mg PO [facility] Last Admin: 12/28/18 20:49 Dose: 10 mg Carvedilol (Coreg) 12.5 mg PO BID-[facility] Last Admin: 12/29/18 08:47 Dose: 12.5 mg Clonidine (Catapres) 0.1 mg PO Q4H PRN PRN Reason: SBP > 180 Last Admin: 12/29/18 04:55 Dose: 0.1 mg Dextrose/Water (Dextrose 50%) 25 gm SLOW IVP PRN PRN PRN Reason: Hypoglycemia Ferrous Sulfate (Feosol) 325 mg PO QAM-[facility] Last Admin: 12/29/18 08:48 Dose: 325 mg Gabapentin (Neurontin) 100 mg PO BID [facility] Last Admin: 12/29/18 08:47 Dose: 100 mg Glucagon (Glucagon) 1 mg IM PRN PRN PRN Reason: Hypoglycemia Dextrose/Water (D5w) 1,000 mls @ 0 mls/hr IV .Q0M PRN PRN Reason: Hypoglycemia Insulin Human Regular (Humulin R) 0 units SC .MILD SLIDING SCALE PRN PRN Reason: Mild Correctional Scale Insulin Human Regular (Humulin R) 0 units SC .BEDTIME SLIDING SC PRN PRN Reason: Bedtime Correctional Scale Levetiracetam (Keppra) 500 mg PO BID [facility] Last Admin: 12/29/18 08:48 Dose: 500 mg Miscellaneous Medication (Pharmacy To Dose) 1 each PO .WARFARIN [facility] Nortriptyline HCl (Pamelor) 25 mg PO HS [facility] Last Admin: 12/28/18 20:50 Dose: 25 mg Pantoprazole Sodium (Protonix) 40 mg PO DAILY [facility] Last Admin: 12/29/18 08:48 Dose: 40 mg Polyethylene Glycol (Miralax) 17 gm PO DAILY PRN PRN Reason: Constipation Senna/Docusate Sodium (Senokot S) 1 tab PO BID [facility] Last Admin: 12/29/18 08:48 Dose: 1 tab Sodium Chloride (Flush - Normal Saline) 10 ml IVF PRN PRN PRN Reason: Saline Flush Vital Signs & Weight: Vital Signs Temp Pulse Resp BP BP BP BP 12/29/18 08:41 97.9 F 81 16 142/92 H 135/92 H 170/94 H 12/29/18 05:54 67 159/79 H 12/29/18 04:55 136/75 12/29/18 04:00 98.3 F 69 18 180/95 H Pulse Ox 12/29/18 08:41 98 12/29/18 05:54 12/29/18 04:55 12/29/18 04:00 98 Weight 188 lb 1.6 oz - Physical Exam General: alert & oriented x3, appears well HEENT: mucus membranes moist Neck: supple neck Cardiac: regular rate and rhythm Lungs: clear to auscultation, no wheeze, rales, rhonchi Neuro: cranial nerve 2-12 intact Abdomen: soft, non-tender Extremities: no cyanosis Skin: clear - Labs Result Diagrams: 12/27/18 03:54 12/27/18 03:53 Troponin/CKMB Troponin I 0.025 ng/mL (< 0.028) 12/25/18 23:45 - Telemetry Sinus rhythms and dysrhythmias: sinus rhythm - Assessment/Plan Assessment/Plan: 1. Syncope 2. CP 3. LAZARA - resolved 4. CAD s/p CABG 5. AF s/p PVI in 2009 6. HTN No current complaints. No CP. Keep NPO tonight. Check INR in AM. Posible cath tomorrow.
[2018-12-29 11:07] LABS: INR-International Normal Ratio 1.7; Prothrombin Time 19.9 SEC (12.0-14.7)
[2018-12-29] MEDS: Acetaminophen 325 MG TAB PO PRN ×2 (11:49→20:31)
--- NOTE | 2018-12-29 13:08 | PDOC.HOSPP ---
- Subjective Encounter Date: 12/29/18 Encounter Time: 08:20 Subjective: Pt seen for followup re: chest pain. Denies having chest pain today. - Objective Vital Signs & Weight: Vital Signs (12 hours) Temp Pulse Resp BP BP BP BP 12/29/18 11:47 70 16 138/94 H 12/29/18 08:41 97.9 F 81 16 142/92 H 135/92 H 12/29/18 05:54 67 12/29/18 04:55 136/75 12/29/18 04:00 98.3 F 69 18 BP Pulse Ox 12/29/18 11:47 95 12/29/18 08:41 170/94 H 98 12/29/18 05:54 159/79 H 12/29/18 04:55 12/29/18 04:00 180/95 H 98 Weight Weight 188 lb 1.6 oz I&O: 12/28/18 12/29/18 12/30/18 06:59 06:59 06:59 Intake Total 1220 1720 Output Total 1850 1989 Balance -630 -115 Result Diagrams: 12/27/18 03:54 12/27/18 03:53 Additional Labs: Accuchecks 12/29/18 12/29/18 12/28/18 10:51 05:24 20:54 POC Glucose 162 H 111 H 193 H 12/28/18 16:46 POC Glucose 109 Labs and MARs reviewed by me EKG Reviewed by me: Yes (Tele: NSR) Hospitalist ROS - Review of Systems Cardiovascular: denies: chest pain, palpitations, orthopnea, paroxysmal noc. dyspnea, edema, light headedness Gastrointestinal: denies: nausea, vomiting, abdominal pain, diarrhea, constipation, melena, hematochezia - Medication Medications: Active Medications Generic Name Dose Route Start Last Admin Trade Name Freq PRN Reason Stop Dose Admin Acetaminophen 650 mg 12/28/18 09:26 12/29/18 11:49 Tylenol PO 650 mg Q6H PRN Administration Moderate Pain (4-6) Amlodipine Besylate 10 mg 12/29/18 09:00 12/29/18 08:47 Norvasc PO 10 mg DAILY TIM Administration Atorvastatin Calcium 10 mg 12/28/18 21:00 12/28/18 20:49 Lipitor PO 10 mg HS TIM Administration Carvedilol 12.5 mg 12/28/18 17:00 12/29/18 08:47 Coreg PO 12.5 mg BID-WM TIM Administration Clonidine 0.1 mg 12/28/18 09:26 12/29/18 04:55 Catapres PO 0.1 mg Q4H PRN Administration SBP > 180 Ferrous Sulfate 325 mg 12/29/18 08:00 12/29/18 08:48 Feosol PO 325 mg QAM-WM TIM Administration Gabapentin 100 mg 12/28/18 09:00 12/29/18 08:47 Neurontin PO 100 mg BID TIM Administration Levetiracetam 500 mg 12/28/18 09:00 12/29/18 08:48 Keppra PO 500 mg BID TIM Administration Nortriptyline HCl 25 mg 12/28/18 21:00 12/28/18 20:50 Pamelor PO 25 mg HS TIM Administration Pantoprazole Sodium 40 mg 12/28/18 09:00 12/29/18 08:48 Protonix PO 40 mg DAILY TIM Administration Senna/Docusate Sodium 1 tab 12/28/18 09:00 12/29/18 08:48 Senokot S PO 1 tab BID TIM Administration - Exam General - other findings: Obese Eye: anicteric sclera ENT: no oropharyngeal lesions, moist mucosa Neck: supple, no lymphadenopathy Heart: RRR, no rubs Respiratory: CTAB, no wheezes Gastrointestinal: soft, non-tender Neurological: no weakness Musculoskeletal: normal strength Psychiatric: normal affect, normal behavior Hosp A/P (1) Chest pain Code(s): R07.9 - CHEST PAIN, UNSPECIFIED Status: Acute (2) Syncope Code(s): R55 - SYNCOPE AND COLLAPSE Status: Acute (3) Orthostatic hypotension Code(s): I95.1 - ORTHOSTATIC HYPOTENSION Status: Acute (4) HTN (hypertension) Code(s): I10 - ESSENTIAL (PRIMARY) HYPERTENSION Status: Chronic (5) Dyslipidemia Code(s): E78.5 - HYPERLIPIDEMIA, UNSPECIFIED Status: Chronic (6) DANITZA (acute kidney injury) Code(s): N17.9 - ACUTE KIDNEY FAILURE, UNSPECIFIED Status: Resolved - Plan Pt to go for cath tomorrow, metformin is on hold. Check cortisol level. TSH is normal. Good control of blood sugars. INR 1.7. Give tonight's Lovenox dose, resume warfari after cath.
[2018-12-29 14:03] LABS: #Eosinphils 0.1 thou/uL (0.0-0.7); #Lymphocytes 1.9 thou/uL (1.20-3.40); #Monocytes 0.6 thou/uL (0.11-0.59); #Neutrophils 5.4 thou/uL (1.40-6.50); %Basophils 0.4 % (0.0-1.0); %Eosinophils 1.1 % (0.0-10.0); %Lymphocytes 23.5 % (21.0-51.0); %Monocytes 7.7 % (0.0-10.0); %Neutrophils 67.2 % (42.0-75.0); Hemoglobin 11.1 g/dL (12.0-16.0); Mean Corpuscular HGB CONC 31.9 g/dL (32.0-36.0); Mean Corpuscular Hemoglobin 26.5 pg (27.0-31.0); Mean Corpuscular Volume 83.2 fL (78.0-98.0); Mean Platelet Volume 7.3 fL (7.4-10.4); Platelet Count 281 thou/uL (130-400); RBC Distribution Width 13.5 % (11.5-14.5); White Blood Cell (WBC) Count 8.1 thou/uL (4.8-10.8)
[2018-12-29 14:24] LABS: Anion Gap 14 mmol/L (10-20); BUN (Urea Nitrogen) 12 mg/dL (9.8-20.1); Calc. Creatinine Clearance 85 mL/min (70-130); Calcium 10.2 mg/dL (7.8-10.44); Carbon Dioxide 27 mmol/L (23-31); Chloride 102 mmol/L (98-107); Estimated GFR-MDRD 78; Glucose 96 mg/dL (80-115); Sodium 139 mmol/L (136-145)
[2018-12-29] MEDS ORDERED: Communication Order-Pharmacy FS SCH (15:30)
--- NOTE | 2018-12-29 19:50 | PRG ---
DATE OF SERVICE: 12/29/2018 SUBJECTIVE: The patient is seen and examined with no new complaint noted with the following vital signs. OBJECTIVE: VITAL SIGNS: Afebrile, temperature 98.5, pulse 70, respiratory rate of 16, O2 saturation of 95%, and blood pressure 138/94. HEENT: Unremarkable. Moist oral mucosa. NECK: Supple. No conjunctival injection or icterus. CARDIOVASCULAR SYSTEM: First and second heart sounds were heard. RESPIRATORY SYSTEM: Clear to auscultation. DIGESTIVE SYSTEM: Benign abdomen. Positive bowel sounds. EXTREMITIES: No peripheral edema. SKIN: No new gross rash. LYMPHATICS: No peripheral lymphadenopathy. IMPRESSION: Acute kidney injury, likely hemodynamically mediated, which has improved with improvement in the blood pressure. PLAN: 1. Continue current renal supportive measures. 2. Monitor the renal function closely, status post contrast exposure. 3. Further management to be dependent on the clinical course. Job ID: [id number]
[2018-12-29] MEDS: Nortriptyline HCl 25 MG CAP PO SCH (20:30)
[2018-12-29] MEDS: Atorvastatin Calcium 10 MG TAB PO SCH (20:30)
[2018-12-29] MEDS ORDERED: Enoxaparin Sodium 80 MG/0.8 ML SYRINGE SC SCH (21:00)
[2018-12-30 05:17] LABS: Hemoglobin 11.5 g/dL (12.0-16.0); Platelet Count 277 thou/uL (130-400)
[2018-12-30 05:19] LABS: #Eosinphils 0.1 thou/uL (0.0-0.7); #Lymphocytes 2.4 thou/uL (1.20-3.40); #Monocytes 0.6 thou/uL (0.11-0.59); %Basophils 0.4 % (0.0-1.0); %Eosinophils 1.3 % (0.0-10.0); %Lymphocytes 29.2 % (21.0-51.0); %Monocytes 7.1 % (0.0-10.0); Hemoglobin 11.4 g/dL (12.0-16.0); Mean Corpuscular HGB CONC 32.4 g/dL (32.0-36.0); Mean Corpuscular Hemoglobin 27.3 pg (27.0-31.0); Mean Corpuscular Volume 84.4 fL (78.0-98.0); Platelet Count 275 thou/uL (130-400); RBC Distribution Width 13.4 % (11.5-14.5); Red Blood Cell (RBC) Count 4.18 mill/uL (4.20-5.40); White Blood Cell (WBC) Count 8.1 thou/uL (4.8-10.8)
[2018-12-30 05:22] LABS: INR-International Normal Ratio 1.5; Prothrombin Time 18.2 SEC (12.0-14.7)
[2018-12-30 05:39] LABS: Anion Gap 14 mmol/L (10-20); BUN (Urea Nitrogen) 12 mg/dL (9.8-20.1); Calc. Creatinine Clearance 94 mL/min (70-130); Calcium 9.8 mg/dL (7.8-10.44); Carbon Dioxide 22 mmol/L (23-31); Chloride 104 mmol/L (98-107); Estimated GFR-MDRD 88; Glucose 109 mg/dL (80-115); Sodium 137 mmol/L (136-145)
[2018-12-30 05:42] LABS: Potassium 2.9 mmol/L (3.5-5.1)
[2018-12-30] MEDS ORDERED: Potassium Chloride 40 MEQ in Sodium Chloride 0.9% 250 ML 250 ML IVPB SCH (06:30)
[2018-12-30] MEDS ORDERED: Potassium Chloride 20 MEQ TAB PO SCH (07:30)
[2018-12-30] MEDS: Senokot S 8.6-50 MG TAB PO SCH ×2 (08:43→21:54)
[2018-12-30] MEDS: Amlodipine 10 MG TAB PO SCH (08:43)
[2018-12-30] MEDS: Ferrous Sulfate 325 MG TAB PO SCH (08:45)
[2018-12-30] MEDS: Carvedilol 6.25 MG TAB PO SCH ×2 (08:45→17:01)
[2018-12-30] MEDS: Gabapentin 100 MG CAP PO SCH ×2 (08:45→21:54)
[2018-12-30] MEDS: levETIRAcetam 500 MG TAB PO SCH ×2 (08:45→21:54)
[2018-12-30] MEDS ORDERED: Verapamil 5 MG/2 ML VIAL ONE ×2 (11:11→15:48)
[2018-12-30] MEDS ORDERED: Heparin 10,000 UNITS/1 ML VIAL ONE ×2 (11:11→15:48)
[2018-12-30] MEDS ORDERED: Nitroglycerin 100MG/250ML BOT 0 ML ONE (11:12)
[2018-12-30] MEDS ORDERED: Lidocaine 1% (PF) 30 ML VIAL ONE (11:12)
[2018-12-30 11:35] LABS: Potassium 3.4 mmol/L (3.5-5.1)
[2018-12-30] MEDS ORDERED: Iopamidol 370 76% 100 ML VIAL ONE (14:03)
[2018-12-30] MEDS ORDERED: Nitroglycerin 100MG/250ML BOT 250 ML ONE (15:48)
[2018-12-30] MEDS ORDERED: hydrALAZINE 20 MG/ML VIAL ONE (16:28)
--- NOTE | 2018-12-30 16:29 | PDOC.CPN ---
- Subjective Date: 12/30/18 Time: 16:20 - Objective Allergies/Adverse Reactions: Allergies Allergy/AdvReac Type Severity Reaction Status Date / Time hydrocodone Allergy Verified 12/22/18 03:44 Sulfa (Sulfonamide Allergy Verified 12/22/18 03:44 Antibiotics) Visit Medications: Current Medications Acetaminophen (Tylenol) 650 mg PO Q6H PRN PRN Reason: Moderate Pain (4-6) Last Admin: 12/29/18 20:31 Dose: 650 mg Acetaminophen/Codeine Phosphate (Tylenol #3) 1 tab PO Q4H PRN PRN Reason: Severe Pain (7-10) Amlodipine Besylate (Norvasc) 10 mg PO DAILY [facility] Last Admin: 12/30/18 08:43 Dose: 10 mg Atorvastatin Calcium (Lipitor) 10 mg PO [facility] Last Admin: 12/29/18 20:30 Dose: 10 mg Carvedilol (Coreg) 12.5 mg PO BID-[facility] Last Admin: 12/30/18 08:45 Dose: 12.5 mg Clonidine (Catapres) 0.1 mg PO Q4H PRN PRN Reason: SBP > 180 Last Admin: 12/29/18 04:55 Dose: 0.1 mg Dextrose/Water (Dextrose 50%) 25 gm SLOW IVP PRN PRN PRN Reason: Hypoglycemia Ferrous Sulfate (Feosol) 325 mg PO QAM-[facility] Last Admin: 12/30/18 08:45 Dose: 325 mg Gabapentin (Neurontin) 100 mg PO BID [facility] Last Admin: 12/30/18 08:45 Dose: 100 mg Glucagon (Glucagon) 1 mg IM PRN PRN PRN Reason: Hypoglycemia Dextrose/Water (D5w) 1,000 mls @ 0 mls/hr IV .Q0M PRN PRN Reason: Hypoglycemia Insulin Human Regular (Humulin R) 0 units SC .MILD SLIDING SCALE PRN PRN Reason: Mild Correctional Scale Insulin Human Regular (Humulin R) 0 units SC .BEDTIME SLIDING SC PRN PRN Reason: Bedtime Correctional Scale Levetiracetam (Keppra) 500 mg PO BID [facility] Last Admin: 12/30/18 08:45 Dose: 500 mg Miscellaneous Medication (Pharmacy To Dose) 1 each PO .WARFARIN [facility] Nortriptyline HCl (Pamelor) 25 mg PO [facility] Last Admin: 12/29/18 20:30 Dose: 25 mg Pantoprazole Sodium (Protonix) 40 mg PO DAILY [facility] Last Admin: 12/30/18 08:45 Dose: 40 mg Polyethylene Glycol (Miralax) 17 gm PO DAILY PRN PRN Reason: Constipation Senna/Docusate Sodium (Senokot S) 1 tab PO BID [facility] Last Admin: 12/30/18 08:43 Dose: 1 tab Sodium Chloride (Flush - Normal Saline) 10 ml IVF PRN PRN PRN Reason: Saline Flush Vital Signs & Weight: Vital Signs Temp Pulse Resp BP BP BP BP 12/30/18 11:17 98.4 F 83 17 160/99 H 12/30/18 08:43 76 149/91 H 12/30/18 07:09 98.6 F 72 16 134/86 138/94 H 165/96 H 12/30/18 04:56 98.1 F 69 17 159/84 H Pulse Ox 12/30/18 11:17 99 12/30/18 08:43 12/30/18 07:09 99 12/30/18 04:56 95 Weight 188 lb 4.8 oz - Quality Measures CV meds: Beta Malena: Yes, Statin: Yes - Physical Exam General: appears well Neck: supple neck Cardiac: regular rate and rhythm Lungs: clear to auscultation Neuro: grossly intact, coordination normal Abdomen: unremarkable Extremities: no edema Musculoskeletal: normal range of motion - Labs Result Diagrams: 12/30/18 05:00 12/30/18 10:57 Troponin/CKMB Troponin I 0.025 ng/mL (< 0.028) 12/25/18 23:45 - Assessment/Plan Assessment/Plan: 1. Syncope 2. CP 3. LAZARA - resolved 4. CAD . NO PRIOR CABG. She has aneurysmal vessels. 5. AF s/p PVI in 2009 6. HTN Cath today. vessels unchanged. Aneurysmal. No stenosis of any significance. Okay to d/c in AM .Resume coumadin.
[2018-12-30] MEDS ORDERED: Sodium Chloride 0.9% 200 ML IV PRN (16:49)
[2018-12-30] MEDS ORDERED: Nitroglycerin 0.4 MG TAB (25 Tab Bottle) SL PRN (16:49)
[2018-12-30] MEDS ORDERED: Acetaminophen/Codeine 30-300mg Tablet PO PRN ×2 (16:49)
[2018-12-30] MEDS: Warfarin Sodium 5 MG TAB PO SCH (17:07)
[2018-12-30] MEDS ORDERED: Lisinopril 2.5 MG TAB PO SCH (17:45)
--- NOTE | 2018-12-30 18:48 | PRG ---
DATE OF SERVICE: 12/30/2018 SUBJECTIVE: The patient was seen and examined, doing very well, noted with the following vital signs. OBJECTIVE: VITAL SIGNS: Afebrile, temperature 99, pulse 90, blood pressure 149/87, respiratory rate of 17, O2 saturation 97%. HEENT: Unremarkable. CARDIOVASCULAR SYSTEM: First and second heart sounds were heard. RESPIRATORY SYSTEM: Clear to auscultation. DIGESTIVE SYSTEM: Revealed a benign abdomen. EXTREMITIES: No peripheral edema. SKIN: No new gross rash. LYMPHATICS: No peripheral lymphadenopathy. IMPRESSION: Acute kidney injury, hemodynamically mediated, seems to be improved. PLAN: 1. We will monitor the kidney function, status post contrast exposure due to cardiac catheterization. 2. Further management to be dependent on the clinical course. Job ID: [id number]
--- NOTE | 2018-12-30 19:05 | PDOC.HOSPP ---
- Subjective Encounter Date: 12/30/18 Encounter Time: 09:20 Subjective: Pt seen for followup re; chest pain. Feels well, no complaints. - Objective Vital Signs & Weight: Vital Signs (12 hours) Temp Pulse Resp BP BP BP BP 12/30/18 17:52 90 157/94 H 12/30/18 17:01 149/87 H 12/30/18 16:53 99.0 F 91 17 162/93 H 12/30/18 11:17 98.4 F 83 17 160/99 H 12/30/18 08:43 76 149/91 H 12/30/18 07:09 98.6 F 72 16 134/86 138/94 H BP Pulse Ox 12/30/18 17:52 12/30/18 17:01 12/30/18 16:53 97 12/30/18 11:17 99 12/30/18 08:43 12/30/18 07:09 165/96 H 99 Weight Weight 188 lb 4.8 oz I&O: 12/29/18 12/30/18 12/31/18 06:59 06:59 06:59 Intake Total 1720 240 Output Total 1989 1600 Balance -270 -1360 Result Diagrams: 12/30/18 05:00 12/30/18 10:57 Additional Labs: Accuchecks 12/30/18 12/30/18 12/30/18 17:58 10:55 05:12 POC Glucose 148 H 128 H 122 H 12/29/18 20:31 POC Glucose 108 labs and MARs reviewed by me EKG Reviewed by me: Yes (Tele: NSR) Hospitalist ROS - Review of Systems Cardiovascular: denies: chest pain, palpitations, orthopnea, paroxysmal noc. dyspnea, edema, light headedness Gastrointestinal: denies: nausea, vomiting, abdominal pain, diarrhea, constipation, melena, hematochezia - Medication Medications: Active Medications Generic Name Dose Route Start Last Admin Trade Name Freq PRN Reason Stop Dose Admin Acetaminophen 650 mg 12/28/18 09:26 12/29/18 20:31 Tylenol PO 650 mg Q6H PRN Administration Moderate Pain (4-6) Acetaminophen/Codeine Phosphate 2 tab 12/30/18 16:49 12/30/18 17:08 Tylenol #3 PO 2 tab Q4H PRN Administration Moderate Pain (4-6) Amlodipine Besylate 10 mg 12/29/18 09:00 12/30/18 08:43 Norvasc PO 10 mg DAILY TIM Administration Atorvastatin Calcium 10 mg 12/28/18 21:00 12/29/18 20:30 Lipitor PO 10 mg HS TIM Administration Carvedilol 12.5 mg 12/28/18 17:00 12/30/18 17:01 Coreg PO 12.5 mg BID-WM TIM Administration Clonidine 0.1 mg 12/28/18 09:26 12/29/18 04:55 Catapres PO 0.1 mg Q4H PRN Administration SBP > 180 Ferrous Sulfate 325 mg 12/29/18 08:00 12/30/18 08:45 Feosol PO 325 mg QAM-WM TIM Administration Gabapentin 100 mg 12/28/18 09:00 12/30/18 08:45 Neurontin PO 100 mg BID TMI Administration Levetiracetam 500 mg 12/28/18 09:00 12/30/18 08:45 Keppra PO 500 mg BID TIM Administration Lisinopril 5 mg 12/30/18 17:45 12/30/18 17:52 Zestril PO 12/30/18 19:45 5 mg NOW TIM Administration Nortriptyline HCl 25 mg 12/28/18 21:00 12/29/18 20:30 Pamelor PO 25 mg HS TIM Administration Pantoprazole Sodium 40 mg 12/28/18 09:00 12/30/18 08:45 Protonix PO 40 mg DAILY TIM Administration Senna/Docusate Sodium 1 tab 12/28/18 09:00 12/30/18 08:43 Senokot S PO 1 tab BID TIM Administration Warfarin Sodium 5 mg 12/30/18 17:00 12/30/18 17:07 Coumadin PO 5 mg 1700 TIM Administration - Exam General - other findings: Obesity Eye: anicteric sclera ENT: moist mucosa Neck: supple Heart: RRR Respiratory: CTAB, no rales Gastrointestinal: soft Musculoskeletal: no muscle wasting Psychiatric: normal affect, normal behavior Hosp A/P (1) Chest pain Code(s): R07.9 - CHEST PAIN, UNSPECIFIED Status: Acute (2) Syncope Code(s): R55 - SYNCOPE AND COLLAPSE Status: Acute (3) Orthostatic hypotension Code(s): I95.1 - ORTHOSTATIC HYPOTENSION Status: Acute (4) HTN (hypertension) Code(s): I10 - ESSENTIAL (PRIMARY) HYPERTENSION Status: Chronic (5) Dyslipidemia Code(s): E78.5 - HYPERLIPIDEMIA, UNSPECIFIED Status: Chronic (6) DANITZA (acute kidney injury) Code(s): N17.9 - ACUTE KIDNEY FAILURE, UNSPECIFIED Status: Resolved - Plan Pt to go for cath later today. Cortisol level is normal. Good control of blood sugars. Resume warfarin after cath.
[2018-12-30] MEDS: Atorvastatin Calcium 10 MG TAB PO SCH (21:54)
[2018-12-30] MEDS: Nortriptyline HCl 25 MG CAP PO SCH (21:54)
[2018-12-31] MEDS: Carvedilol 6.25 MG TAB PO SCH ×2 (08:58→17:17)
[2018-12-31] MEDS: Ferrous Sulfate 325 MG TAB PO SCH (08:59)
[2018-12-31] MEDS: Gabapentin 100 MG CAP PO SCH (09:00)
[2018-12-31] MEDS: Senokot S 8.6-50 MG TAB PO SCH (09:00)
[2018-12-31] MEDS: Amlodipine 10 MG TAB PO SCH (09:00)
[2018-12-31] MEDS ORDERED: Lisinopril 5 MG TAB PO SCH (09:00)
[2018-12-31] MEDS: levETIRAcetam 500 MG TAB PO SCH (09:00)
[2018-12-31 09:06] LABS: #Eosinphils 0.1 thou/uL (0.0-0.7); #Monocytes 0.4 thou/uL (0.11-0.59); #Neutrophils 5.3 thou/uL (1.40-6.50); %Basophils 0.6 % (0.0-1.0); %Eosinophils 1.2 % (0.0-10.0); %Lymphocytes 25.2 % (21.0-51.0); %Monocytes 5.3 % (0.0-10.0); %Neutrophils 67.7 % (42.0-75.0); Hemoglobin 12.1 g/dL (12.0-16.0); Mean Corpuscular HGB CONC 32.4 g/dL (32.0-36.0); Mean Corpuscular Hemoglobin 27.2 pg (27.0-31.0); Mean Corpuscular Volume 84.1 fL (78.0-98.0); Platelet Count 304 thou/uL (130-400); RBC Distribution Width 13.7 % (11.5-14.5); Red Blood Cell (RBC) Count 4.44 mill/uL (4.20-5.40); White Blood Cell (WBC) Count 7.9 thou/uL (4.8-10.8)
[2018-12-31 09:27] LABS: Anion Gap 15 mmol/L (10-20); BUN (Urea Nitrogen) 11 mg/dL (9.8-20.1); Calc. Creatinine Clearance 76 mL/min (70-130); Calcium 10.3 mg/dL (7.8-10.44); Carbon Dioxide 21 mmol/L (23-31); Chloride 104 mmol/L (98-107); Estimated GFR-MDRD 70; Glucose 160 mg/dL (80-115); Potassium 3.5 mmol/L (3.5-5.1); Sodium 136 mmol/L (136-145)
[2018-12-31 15:50] VITALS: BP 139/85; TEMP 98.8
[2018-12-31] MEDS: Warfarin Sodium 5 MG TAB PO SCH (17:18)
--- NOTE | 2018-12-31 22:34 | DIS ---
DATE OF ADMISSION: 12/26/2018 DATE OF DISCHARGE: 12/31/2018 PRIMARY CARE PROVIDER: Romero Tompkins MD DISCHARGE DIAGNOSES: 1. Syncopal episode. 2. Chest pain. 3. Acute kidney injury. 4. Hypokalemia. 5. Hyponatremia. 6. Orthostatic hypotension. CONDITION OF PATIENT ON THE DAY OF DISCHARGE: Stable. I assessed Ms. Pinto on the day of discharge. She denies any chest pain or shortness of breath. Vital signs are stable. S1 and S2 are heard, regular. Lungs are clear to auscultation bilaterally. CONSULTATIONS DURING THIS HOSPITALIZATION: 1. Cardiology, Andreia Fair MD. 2. Nephrology, Lydia Hagan MD. FOLLOWUP APPOINTMENTS: Primary care provider in 3 days time. DISCHARGE MEDICATIONS: 1. Coreg 12.5 mg 2 times a day. 2. Citalopram 20 mg daily. 3. Ferrous sulfate 325 mg daily. 4. Keppra 500 mg 2 times a day. 5. Metformin 500 mg daily. 6. Protonix 40 mg daily. 7. Zocor 20 mg at bedtime. 8. Warfarin 5 mg daily. 9. Amlodipine 10 mg daily. 10. Neurontin 100 mg 2 times a day. 11. Lisinopril 5 mg daily. 12. Nortriptyline 25 mg at bedtime. 13. Tylenol No. 3 p.r.n. 14. Baclofen p.r.n. HOSPITAL COURSE: Ms. Pinto is a pleasant 68-year-old lady, who was admitted to [facility] on December 25, 2018, for acute kidney injury and chest pain as well as recent syncopal episode. She was admitted to telemetry floor. She was seen by Cardiology Service. She was also seen by Nephrology Service. She received intravenous fluids with a resolution of kidney injury. Her blood pressures were also elevated and she was started on amlodipine and lisinopril. 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 Cardiology Service recommended medical therapy including statin, beta rip and NIK inhibitor. She also had orthostatic hypotension. Cortisol level was normal. She was thought strategies including getting up from supine to standing in steps gradually. She was advised to follow up with her primary care provider in 3 to 5 days time. On the day of discharge, she has normal sodium, normal potassium, normal creatinine, normal CBC. Many thanks for allowing me to participate in your patient's care. Please feel free to contact me with any questions or concerns. Followup appointments: With primary care provider in 3 to 5 days time. DISCHARGE DESTINATION: Home. TIME SPENT: Total amount of time spent coordinating this discharge: 32 minutes. Job ID: [id number]
== END 2018-12-31 17:56 | disposition home or self-care (01) | DRG 286 ==
LOC: ERS 12:13 → 2SW 17:01 → OBSVTOIN 12-26 13:45 → 2NO 12-27 11:14 → UNDODISIN 12-27 20:00
PROVIDERS: ADMIT Internal Medicine Nephrology; ATTEND Internal Medicine Nephrology
PROC: 4A023N8 Measurement of Cardiac Sampling and Pressure, Bilateral, Percutaneous Approach (ICD-10-PCS; principal; 2018-12-30)
PROC: B2011ZZ Plain Radiography of Multiple Coronary Arteries using Low Osmolar Contrast (ICD-10-PCS; 2018-12-30)
PROC: B2051ZZ Plain Radiography of Left Heart using Low Osmolar Contrast (ICD-10-PCS; 2018-12-30)
DX: R07.89 Other chest pain (principal); G93.41 Metabolic encephalopathy; N17.9 Acute kidney failure, unspecified; E87.1 Hypo-osmolality and hyponatremia; I10 Essential (primary) hypertension; E78.5 Hyperlipidemia, unspecified; I48.91 Unspecified atrial fibrillation; M79.7 Fibromyalgia; I45.10 Unspecified right bundle-branch block; R56.9 Unspecified convulsions; E66.9 Obesity, unspecified; I95.1 Orthostatic hypotension; R79.1 Abnormal coagulation profile; I25.10 Atherosclerotic heart disease of native coronary artery without angina pectoris; E11.9 Type 2 diabetes mellitus without complications; M19.90 Unspecified osteoarthritis, unspecified site; E87.6 Hypokalemia; Z79.4 Long term (current) use of insulin; Z98.84 Bariatric surgery status; Z86.711 Personal history of pulmonary embolism; Z79.01 Long term (current) use of anticoagulants; Z90.710 Acquired absence of both cervix and uterus; Z88.2 Allergy status to sulfonamides; Z88.8 Allergy status to other drugs, medicaments and biological substances; Z68.33 Body mass index [BMI] 33.0-33.9, adult
CPT/HCPCS: 36415; 36416; 71046; 80048; 80053; 80061; 82533; 82550; 83735; 84443; 84484; 85014; 85018; 85025; 85049; 85610; 85730; 93005; 93458; 96360; 96361; C1769; J0360; J1644; J1650; J2001; Q9967

== ENCOUNTER 2019-05-09 08:49 | Outpatient (CLI) | payer MEDICARE ==
--- NOTE | 2019-05-09 12:03 | MMO ---
Bilateral MAMMO Bilat Screen DDI+MELL. CLINICAL HISTORY: Patient is 69 years old and is seen for screening. The patient has no family history of breast cancer. The patient has no personal history of cancer. VIEWS: The views performed were: bilateral craniocaudal with tomosynthesis and bilateral mediolateral oblique with tomosynthesis. FILMS COMPARED: The present examination has been compared to prior imaging studies performed at [facility] on 01/01/2017 and 01/09/2017. This study has been interpreted with the assistance of computer-aided detection. MAMMOGRAM FINDINGS: The breasts are almost entirely fat. There are benign appearing and vascular calcifications seen in both breasts. Benign densities both breasts remain stable. There are no suspicious masses, suspicious calcifications, or new areas of architectural distortion. IMPRESSION: THERE IS NO MAMMOGRAPHIC EVIDENCE OF MALIGNANCY. A ROUTINE FOLLOW-UP MAMMOGRAM IN 1 YEAR IS RECOMMENDED. THE RESULTS OF THIS EXAM WERE SENT TO THE PATIENT. ACR BI-RADS Category 2 - Benign finding MAMMOGRAPHY NOTE: 1. A negative mammogram report should not delay a biopsy if a dominant of clinically suspicious mass is present. 2. Approximately 10% to 15% of breast cancers are not detected by mammography. 3. Adenosis and dense breasts may obscure an underlying neoplasm. Reported by: PETERSON MILLS MD Electonically Signed: [id number]
== END 2019-05-09 08:50 | disposition home or self-care (01) ==
LOC: BICMAMMO 08:49
PROVIDERS: ATTEND Family Medicine
DX: Z12.31 Encounter for screening mammogram for malignant neoplasm of breast (principal)
CPT/HCPCS: 77063; 77067

== ENCOUNTER 2020-05-22 16:57 | Inpatient (IN) | payer MEDICARE ==
[2020-05-22] MEDS ORDERED: Ondansetron ODT 4 MG TAB ONE ×2 (17:51→17:53)
[2020-05-22] MEDS ORDERED: Oxymetazoline HCl 0.05% (30 ML BOT) ONE (17:51)
[2020-05-22 18:08] LABS: #Basophils 0.1 thou/uL (0.0-0.2); #Eosinphils 0.2 thou/uL (0.0-0.7); #Lymphocytes 2.1 thou/uL (1.20-3.40); #Monocytes 0.4 thou/uL (0.11-0.59); #Neutrophils 4.5 thou/uL (1.40-6.50); %Basophils 0.9 % (0.0-1.0); %Eosinophils 2.7 % (0.0-10.0); %Lymphocytes 28.4 % (21.0-51.0); %Monocytes 5.9 % (0.0-10.0); %Neutrophils 62.1 % (42.0-75.0); Hemoglobin 11.2 g/dL (12.0-16.0); Mean Corpuscular HGB CONC 32.3 g/dL (32.0-36.0); Mean Corpuscular Hemoglobin 27.7 pg (27.0-31.0); Mean Corpuscular Volume 85.6 fL (78.0-98.0); Mean Platelet Volume 7.5 fL (7.4-10.4); Platelet Count 215 thou/uL (130-400); RBC Distribution Width 13.3 % (11.5-14.5); Red Blood Cell (RBC) Count 4.06 mill/uL (4.20-5.40); White Blood Cell (WBC) Count 7.3 thou/uL (4.8-10.8)
[2020-05-22 18:15] LABS: INR-International Normal Ratio 2.2; PTT 23.1 sec (22.9-36.1); Prothrombin Time 24.9 sec (12.0-14.7)
[2020-05-22 18:28] LABS: ALT (SGPT) 15 U/L (8-55); AST (SGOT) 21 U/L (5-34); Alkaline Phosphatase 96 U/L (40-110); Anion Gap 14 mmol/L (10-20); BUN (Urea Nitrogen) 11 mg/dL (9.8-20.1); Bilirubin, Total 0.2 mg/dL (0.2-1.2); Calc. Creatinine Clearance 0 mL/min (70-130); Calcium 9.4 mg/dL (7.8-10.44); Carbon Dioxide 20 mmol/L (23-31); Chloride 107 mmol/L (98-107); Globulin 3.8 g/dL (2.4-3.5); Glucose 99 mg/dL (80-115); Potassium 4.2 mmol/L (3.5-5.1); Protein, Total 7.8 g/dL (5.8-8.1); Sodium 137 mmol/L (136-145)
[2020-05-22] MEDS ORDERED: Tranexamic Acid 1,000 MG/10 ML VIAL ONE (18:55)
[2020-05-22] MEDS ORDERED: Phytonadione 10 MG/ML AMP ONE (21:15)
[2020-05-22] MEDS ORDERED: Bacitracin 1 PK ONE ×2 (22:30→22:31)
[2020-05-22] MEDS ORDERED: HYDROcodone/Acetaminophen 10/325 mg Tablet ONE (22:55)
[2020-05-22] MEDS ORDERED: Acetaminophen 500 MG TAB ONE (23:00)
[2020-05-22] MEDS ORDERED: Amlodipine 5 MG TAB ONE (23:28)
[2020-05-22] MEDS ORDERED: Lisinopril 10 MG TAB ONE (23:28)
[2020-05-22] MEDS ORDERED: Isosorbide Dinitrate 20 MG TAB PO SCH (23:45)
[2020-05-23] MEDS ORDERED: Bacitracin Zinc Ointment 30 gm TUBE TOP SCH (02:45)
[2020-05-23 02:53] VITALS: BMI 32.9
[2020-05-23 04:49] LABS: #Lymphocytes 0.9 thou/uL (1.20-3.40); #Monocytes 0.2 thou/uL (0.11-0.59); #Neutrophils 9.1 thou/uL (1.40-6.50); %Basophils 0.3 % (0.0-1.0); %Eosinophils 0.2 % (0.0-10.0); %Lymphocytes 8.5 % (21.0-51.0); %Monocytes 2.2 % (0.0-10.0); %Neutrophils 88.9 % (42.0-75.0); Hemoglobin 9.7 g/dL (12.0-16.0); Mean Corpuscular HGB CONC 33.8 g/dL (32.0-36.0); Mean Corpuscular Hemoglobin 29.1 pg (27.0-31.0); Mean Corpuscular Volume 86.2 fL (78.0-98.0); Mean Platelet Volume 6.8 fL (7.4-10.4); Platelet Count 245 thou/uL (130-400); RBC Distribution Width 13.1 % (11.5-14.5); Red Blood Cell (RBC) Count 3.33 mill/uL (4.20-5.40); White Blood Cell (WBC) Count 10.3 thou/uL (4.8-10.8)
[2020-05-23 05:11] LABS: Anion Gap 12 mmol/L (10-20); BUN (Urea Nitrogen) 17 mg/dL (9.8-20.1); Calc. Creatinine Clearance 76 mL/min (70-130); Calcium 9.2 mg/dL (7.8-10.44); Carbon Dioxide 24 mmol/L (23-31); Chloride 107 mmol/L (98-107); Glucose 144 mg/dL (80-115); Potassium 3.8 mmol/L (3.5-5.1); Sodium 139 mmol/L (136-145)
[2020-05-23 09:07] LABS: Hemoglobin 9.6 g/dL (12.0-16.0)
[2020-05-23 10:35] LABS: INR-International Normal Ratio 1.4; Prothrombin Time 17.3 sec (12.0-14.7)
[2020-05-23 12:13] LABS: Hemoglobin 9.3 g/dL (12.0-16.0)
[2020-05-23 16:48] LABS: Hemoglobin 9.1 g/dL (12.0-16.0)
[2020-05-23] MEDS: Baclofen 10 MG TAB PO SCH (20:25)
[2020-05-23] MEDS: Amoxicillin/Potassium Clav 875 MG TAB PO SCH (20:27)
[2020-05-23] MEDS ORDERED: Gabapentin 300 MG CAP PO SCH (21:00)
[2020-05-23] MEDS ORDERED: Atorvastatin Calcium 10 MG TAB PO SCH (21:00)
[2020-05-23] MEDS ORDERED: Nortriptyline HCl 25 MG CAP PO SCH (21:00)
[2020-05-23 21:33] LABS: Hemoglobin 8.6 g/dL (12.0-16.0)
[2020-05-24 06:24] LABS: #Lymphocytes 2.3 thou/uL (1.20-3.40); #Monocytes 0.9 thou/uL (0.11-0.59); #Neutrophils 7.2 thou/uL (1.40-6.50); %Basophils 0.2 % (0.0-1.0); %Eosinophils 0.3 % (0.0-10.0); %Lymphocytes 21.6 % (21.0-51.0); %Monocytes 8.6 % (0.0-10.0); %Neutrophils 69.3 % (42.0-75.0); Hemoglobin 8.1 g/dL (12.0-16.0); Mean Corpuscular HGB CONC 33.5 g/dL (32.0-36.0); Mean Corpuscular Hemoglobin 28.9 pg (27.0-31.0); Mean Corpuscular Volume 86.1 fL (78.0-98.0); Platelet Count 229 thou/uL (130-400); RBC Distribution Width 13.1 % (11.5-14.5); White Blood Cell (WBC) Count 10.4 thou/uL (4.8-10.8)
[2020-05-24] MEDS ORDERED: Acetaminophen 325 MG TAB PO PRN (06:46)
[2020-05-24 06:50] LABS: Anion Gap 12 mmol/L (10-20); BUN (Urea Nitrogen) 20 mg/dL (9.8-20.1); Calc. Creatinine Clearance 69 mL/min (70-130); Calcium 9.2 mg/dL (7.8-10.44); Carbon Dioxide 25 mmol/L (23-31); Chloride 107 mmol/L (98-107); Glucose 130 mg/dL (80-115); Potassium 3.4 mmol/L (3.5-5.1); Sodium 141 mmol/L (136-145)
[2020-05-24] MEDS: Baclofen 10 MG TAB PO SCH (08:11)
[2020-05-24] MEDS: Amoxicillin/Potassium Clav 875 MG TAB PO SCH (08:12)
[2020-05-24] MEDS ORDERED: Ferrous Sulfate 325 MG TAB PO SCH (09:00)
[2020-05-24] MEDS ORDERED: Gabapentin 300 MG CAP PO SCH (09:00)
[2020-05-24] MEDS ORDERED: Citalopram 20 MG TAB PO SCH (09:00)
[2020-05-24] MEDS ORDERED: Carvedilol 6.25 MG TAB PO SCH ×2 (10:15→17:00)
[2020-05-24 12:43] VITALS: BP 109/78; TEMP 98.1
== END 2020-05-24 12:43 | disposition home or self-care (01) | DRG 813 ==
LOC: ERS 16:57 → T4-B 05-23 01:05 → OBSVTOIN 05-23 16:39
PROVIDERS: ADMIT Student in an Organized Health Care Education/Training Program; ATTEND Student in an Organized Health Care Education/Training Program
PROC: 2Y41X5Z Packing of Nasal Region using Packing Material (ICD-10-PCS; principal; 2020-05-23)
PROC: 099K7ZZ Drainage of Nasal Mucosa and Soft Tissue, Via Natural or Artificial Opening (ICD-10-PCS; 2020-05-23)
DX: D68.32 Hemorrhagic disorder due to extrinsic circulating anticoagulants (principal); T45.515A Adverse effect of anticoagulants, initial encounter; R04.0 Epistaxis; I10 Essential (primary) hypertension; I48.0 Paroxysmal atrial fibrillation; R31.9 Hematuria, unspecified; E78.00 Pure hypercholesterolemia, unspecified; Z86.718 Personal history of other venous thrombosis and embolism; Z79.01 Long term (current) use of anticoagulants; Z88.2 Allergy status to sulfonamides; Z88.8 Allergy status to other drugs, medicaments and biological substances; Z79.899 Other long term (current) drug therapy; Z90.710 Acquired absence of both cervix and uterus; Z98.84 Bariatric surgery status; Z86.711 Personal history of pulmonary embolism
CPT/HCPCS: 30903; 36415; 71045; 80048; 80053; 85025; 85610; 85730; 86850; 86900; 86901; 96372; G0378; J3430; Q0162

== ENCOUNTER 2022-10-18 18:27 | Emergency (ER) | payer MEDICARE ==
[2022-10-18] MEDS ORDERED: Ketorolac Tromethamine 30 MG/ML VIAL ONE (19:32)
== END 2022-10-18 20:35 | disposition home or self-care (01) ==
LOC: ERS 18:27
DX: M25.562 Pain in left knee (principal); M25.561 Pain in right knee; M25.552 Pain in left hip; M25.551 Pain in right hip; M54.9 Dorsalgia, unspecified; R51.9 Headache, unspecified; M54.2 Cervicalgia; E11.9 Type 2 diabetes mellitus without complications; E78.00 Pure hypercholesterolemia, unspecified; I10 Essential (primary) hypertension; Z87.891 Personal history of nicotine dependence; Z79.899 Other long term (current) drug therapy; Z79.84 Long term (current) use of oral hypoglycemic drugs
CPT/HCPCS: 70450; 72125; 72128; 72131; 72170; 96372; J1885

== ENCOUNTER 2023-06-20 09:39 | Outpatient (CLI) | payer MEDICARE | END 2023-06-20 09:40 | disposition home or self-care (01) | LOC: BICRAD 09:39 | PROVIDERS: ATTEND Nurse Practitioner Family | DX: M54.2 Cervicalgia (principal); M47.812 Spondylosis without myelopathy or radiculopathy, cervical region | CPT/HCPCS: 72040 ==

== ENCOUNTER 2023-09-19 14:42 | Outpatient (CLI) | payer MEDICARE | END 2023-09-19 14:43 | disposition home or self-care (01) | LOC: BICMAMMO 14:42 | PROVIDERS: ATTEND Family Medicine | DX: Z13.820 Encounter for screening for osteoporosis (principal); M81.0 Age-related osteoporosis without current pathological fracture; M85.89 Other specified disorders of bone density and structure, multiple sites; Z78.0 Asymptomatic menopausal state | CPT/HCPCS: 77080 ==